=== PATIENT | female | born 1965 | race Hispanic/Latino ===

== ENCOUNTER 2019-05-06 16:52 | Inpatient (IN) | payer OTHER ==
[~2019-05-06] VITALS: Ht 149.9 cm; Wt 88.9 kg
--- OUTSIDE RECORDS SUMMARY | 2019-05-06 16:55 | XMS REPORT ---
Author Author [facility] Address Unknown Phone Unavailable Care Team Providers Care Digital Camera Technician Name Role Phone Liliya SELBY Unavailable Unavailable Payers Payer Name Policy Type Policy Number Effective Date Expiration Date Problems This patient has no known problems. Allergies, Adverse Reactions, Alerts Allergy Name Allergy Type Status Severity Reaction(s) Onset Date Inactive Date Treating Clinician Comments aspirin DA Active SV 2018-03-29 00:00:00 Medications This patient has no known medications. Encounters Start Date/Time End Date/Time Encounter Type Admission Type Attending Clinicians Care Facility Care Department Encounter ID 2018-07-28 03:12:00 2018-07-28 03:12:00 Emergency E [id number] Results Test Description Test Time Test Comments Text Results Atomic Results Result Comments TISSUE EXAM 2019-02-02 17:23:00 Surgical Pathology Report Case: [id number] Authorizing Provider: Gallo Selby MD Collected: 01/26/2019 1800 Ord ering Location: [facility] Radiology Main Received: 01/26/2019 0941 Pathologist: Agustín Robison MD Specimen: Kidney, Left KIDNEY, LEFT, NEEDLE BIOPSIES- FOCAL SEGMENTAL AND DIFFUSE GLOBAL GLOMERULOSCLEROSIS WITH KIMMELSTIEL GARY NODULES, - NEGATIVE FOR IMMUNE MEDIATED GLOMERULONEPHRITIS (PENDING EM EVALUATION)- DIFFUSE INTERSTITIAL FIBROSIS AND TUBULAR ATROPHY (~70%)- MARKED ARTERIAL AND ARTERIOLAR SCLEROSIS- SEE COMMENT Signing Pathologist Direct Phone Line: [phone] signed by Agustín Robison MD on 02/02/2019 at 5:23 PMPreliminary result electronically signed by Agustín Robison MD on 01/28/2019 at 4:57 PMThe renal biopsy shows predominant changes of advanced diabetic glomerulosclerosis, admixed with hypertensive changes. The results were discussed with Dr. Selby on 01/28/2019 at 5 pm. [id number], [id number] x3, 88 346, 33271 x7, [id number], UPC of 11, Diabetes, Hypertension and Chronic kidney diseaseLeft transplant kidney biopsyThe specimen is received in three containers each labeled with the patient's name, accession number and "kidney L". Received in formalin are two traore-soft tissue cores measuring 1.6 cm and 1.2 cm in length which are submitted in toto in A1. Received in saline is a 1.7 cm in length traore soft tissue core which is frozen for immunofluorescence study. Received in glutaraldehyde is a 0.3 cm traore soft tissue core which is sent to the EM lab for further processing. CG/pl LIGHT MICROSCOPY: Sections show two cores of cortical tissue. Glomeruli: Approximately 28 glomeruli are examined of which 16 glomeruli are globally sclerotic/obsolescent or show near complete obsolescence. Most globally sclerotic glomeruli are enlarged with hyalinosis. Occcasional globally sclerosed glomerulus is small with wrinkled and collapsed glomerular tuft. The remaining non-globally sclerotic glomeruli are enlarged and have mesangial expansion by PAS- and silver-positive matrix with normal to mild segmental hypercellularity. Focal and segmental sclerosis is present. Multiple glomeruli shows Kimmelsteil Gary nodules. No endocapillary hypercellularity, crescents or thrombi are seen.Tubules and interstitium: There is severe interstitial fibrosis with focal tubular atrophy and mild chronic interstitial inflammatory cell infiltration by lymphocytes involving about 70% of renal cortex. The foci of scarring show mild chronic lymphoplasmacytic inflammation admixed with eosinophils. Non-atrophic proximal tubules are focally ectatic with loss of brush borders. Vessels: Interlobular arteries show moderate intimal sclerosis and thickening. There is diffuse hyaline arteriolosclerosis. Special stains: Vicky trichrome, PAS and Keenan silver stains were necessary for evaluation of this biopsy and showed expected staining patterns of internal control tissue matrix structures.Direct Immunofluorescence:Histology: H&E- stained sections show 3 non-obsolescent glomeruli and 8 obsolescent glomeruli. Immunofluorescence findings: IgA: negative in glomeruli; positive staining in tubular castsIgG: no significant glomerular, tubulointerstitial or vascular staining IgM: focal, segmental mesangial staining, amorphous/entrapment, 2+C3: focal mesangial staining 1+ to 2+, focal arteriolar beocdaniT9g: no significant glomerular, tubulointerstitial or vascular staining Fibrinogen: no significant glomerular, tubulointerstitial or vascular staining [place]: negative glomeruli; positive staining in tubular castsLambda: negative glomeruli; positive staining in tubular castsAll polyclonal antibodies used for immunofluorescence staining have been previously tested and shown to have appropriate reactivities with positive control specimens. ELECTRON MICROSCOPYPerformed on paraffin embedded tissue: Ultrastructure: Examination of the glomerular ultrastructure reveals that the glomerular basement membrane is segmentally thick, focally measuring approximately 750 nm (normal adult female kmrbaiv=259 - 395 nm; Joe Saleh,Arch Pathol Lab Med [phone]). There is nodular mesangial expansion. Mesangial expansion with fibrils consistent with diabetic fibrillosis are present. No subendothelial, subepithelial, and mesangial/paramesangial electron-dense, immune complex-type deposits are not present. Podocyte foot processes are diff usely effaced.The interpretation of this case included the use of immunohistochemistry or special stains.Control Slides Examined: In-house known positive controls were evaluated along with the test tissue. These control slides run alongside of the patients sample show appropriate staining. Internal positive and negative controls when available are evaluated Immunohistochemistry technical testing was performed at [facility], Pathology Laboratory where it was developed and its performance characteristics were determined. It has not been cleared or approved by the U.S. Food and Drug Administration. The FDA has determined that such clearance or approval is not necessary. The test is used for clinical purposes. It should not be regarded as investigational or for research. This laboratory is certified under the Clinical Laboratory Improvement Amendments of 1988 (CLIA-88) as qualified to perform high complexity clinical laboratory testing. U/S, BIOPSY, RENAL (KIDNEY) 2019-01-26 17:37:00 Reason for Exam:->R80.9 N18.4 FINAL REPORT HISTORY: Proteinuria Sedation: Moderate sedation was administered. 1 mg of Versed and 50 mcg of fentanyl IV was used for moderate sedation monitored under my direction. Total intra-service time of sedation was 20 minutes. The patient's vital signs were monitored throughout the procedure and recorded in the patient's medical record by the nurse. DISCUSSION: The procedure including the risks and complications were explained to the patient and the patient consented. The [place] left kidney was localized under ultrasound. The left back was prepped and draped in the usual sterile fashion and 1% lidocaine was applied to the skin and deep soft tissues. Under ultrasound guidance, a total of three biopsy samples were obtained utilizing an 18 gauge needle. Pathology was present during the procedure and specimens were analyzed for adequacy. Specimens were placed in formalin and were sent to pathology for analysis. Postprocedure sonogram did not demonstrate any compli cations. IMPRESSION: Successful ultrasound guided core random biopsy of the [place] left kidney. Signed: Matthew Mac Verified Date/Time: 01/26/2019 17:37:54 Reading Location: [address] Body Reading Room W/PLT COUNT & AUTO DIFFERENTIAL 2019-01-26 07:43:00 WHITE BLOOD CELL COUNT (BEAKER) (test gaxs=429) 10.5 K/ L 3.5-10.5 RED BLOOD CELL COUNT (BEAKER) (test ocuj=834) 2.88 M/ L 3.93-5.22 HEMOGLOBIN (BEAKER) (test wexn=184) 7.7 GM/DL 11.2-15.7 HEMATOCRIT (BEAKER) (test igbl=007) 25.7 % 34.1-44.9 MEAN CORPUSCULAR VOLUME (BEAKER) (test cjwg=195) 89.2 fL 79.4-94.8 MEAN CORPUSCULAR HEMOGLOBIN (BEAKER) (test scxk=080) 26.7 pg 25.6-32.2 MEAN CORPUSCULAR HEMOGLOBIN CONC (BEAKER) (test fzmf=514) 30.0 GM/DL 32.2-35.5 RED CELL DISTRIBUTION WIDTH (BEAKER) (test dxia=595) 14.0 % 11.7-14.4 PLATELET COUNT (BEAKER) (test obot=639) 305 K/CU MM 150-450 MEAN PLATELET VOLUME (BEAKER) (test bfpz=331) 10.0 fL 9.4-12.3 NUCLEATED RED BLOOD CELLS (BEAKER) (test ssxr=235) 0 /100 WBC 0-0 NEUTROPHILS RELATIVE PERCENT (BEAKER) (test enyp=297) 58 % LYMPHOCYTES RELATIVE PERCENT (BEAKER) (test yxjo=699) 24 % MONOCYTES RELATIVE PERCENT (BEAKER) (test dlei=539) 7 % EOSINOPHILS RELATIVE PERCENT (BEAKER) (test nfsz=109) 10 % BASOPHILS RELATIVE PERCENT (BEAKER) (test zuat=927) 1 % NEUTROPHILS ABSOLUTE COUNT (BEAKER) (test hzbj=396) 6.07 K/ L 1.56-6.13 LYMPHOCYTES ABSOLUTE COUNT (BEAKER) (test ahxu=014) 2.49 K/ L 1.18-3.74 MONOCYTES ABSOLUTE COUNT (BEAKER) (test pmtg=288) 0.78 K/ L 0.24-0.36 EOSINOPHILS ABSOLUTE COUNT (BEAKER) (test lqxu=899) 1.07 K/ L 0.04-0.36 BASOPHILS ABSOLUTE COUNT (BEAKER) (test qobp=438) 0.08 K/ L 0.01-0.08 IMMATURE GRANULOCYTES-RELATIVE PERCENT (BEAKER) (test khxz=5231) 1 % 0-1 SCREEN, [id number] 07:40:00* Test Item Value Reference Range Comments TEST URINE (BEAKER) (test syyv=125) Negative [id number] 07:39:00* Test Item Value Reference Range Comments PARTIAL THROMBOPLASTIN TIME (BEAKER) (test gyeo=199) 34.5 seconds 22.5-36.0 PROTHROMBIN TIME/[id number] 07:38:00* Test Item Value Reference Range Comments PROTIME (BEAKER) (test fgyo=526) 13.8 seconds 11.9-14.2 INR (BEAKER) (test guka=491) 1.1 <=5.9 Effective 09/10/2018: PT Reference Range ChangeNew: 11.9-14.2 Previous: 11.7-14. 7RECOMMENDED COUMADIN/WARFARIN INR THERAPY RANGESSTANDARD DOSE: 2.0-3.0 Include s: PROPHYLAXIS for venous thrombosis, systemic embolization; TREATMENT for venou s thrombosis and/or pulmonary embolus.HIGH RISK: Target INR is 2.5-3.5 for patie nts wiht mechanical heart valves.
[2019-05-06] MEDS ORDERED: HYDRALAZINE HCL 20 MG/ML VIAL IV STA (17:07)
[2019-05-06] MEDS ORDERED: ACETAMINOPHEN 325 MG TAB PO ONE (17:15)
[2019-05-06] MEDS ORDERED: HYDRALAZINE HCL 20 MG/ML VIAL ONE (17:19)
[2019-05-06] MEDS ORDERED: ACETAMINOPHEN 325 MG TAB ONE (17:19)
[2019-05-06] MEDS ORDERED: ONDANSETRON HCL INJ 2MG/ML 2ML 2 MG/ML VIAL IV STA (17:19)
[2019-05-06] MEDS ORDERED: SODIUM CHLORIDE 0.9% 500ML 500 ML IV STA (17:24)
[2019-05-06] MEDS ORDERED: SODIUM CHLORIDE 0.9% 500ML 500 ML ONE (17:50)
--- NOTE | 2019-05-06 18:11 | Diagnostic Imaging Report ---
CT Abdomen and Pelvis without contrast INDICATION: Nodule, vomiting, diarrhea, ^pain TECHNIQUE: Thin collimation axial images obtained from the diaphragm to the level of the pubic symphysis without nonionic intravenous contrast. Dose reduction techniques used: Automated exposure control, adjustment of the mAs and/or kVp according to patient size, standardized low-dose protocol, and/or iterative reconstruction technique. RADIATION DOSE: Total DLP: 706.17 mGy*cm Estimated effective dose: (DLP x 0.015 x size factor) mSv CTDIvol has been reviewed. It is below the limits set by the Radiation Protocol Committee (RPC). COMPARISON: None. ABDOMEN FINDINGS: Lung Bases: Trace subsegmental atelectasis of the right middle lobe and lingula. The distal esophagus is patulous. No hiatal hernia. Liver: Normal in attenuation without mass. Gallbladder: Absent. No ductal dilatation. Pancreas: Normal attenuation without mass. Spleen: Normal size without mass. Adrenal Glands: No evidence for mass. Kidneys: Right: No renal calculus. No cortical mass or hydronephrosis Left: No renal calculus. No cortical mass or hydronephrosis Lymph Nodes: Left periaortic lymph nodes are prominent, measuring up to 1.4 x 2.0 cm. Aorta: Normal in diameter. Scattered calcifications throughout the arterial structures PELVIS FINDINGS: Bowel: Stomach: Normal. Small Bowel: Normal in caliber with normal wall thickness. Large Bowel: Nonspecific mural thickening of the transverse colon without pericolonic inflammation. No large bowel dilatation. No diverticulosis appreciated. Appendix: Normal. Bladder: Normal. Ureters: No ureteral dilatation. The uterus is present and is atrophic. No adnexal mass. Peritoneum/retroperitoneum: No free fluid or fluid collection. Bones: No focal osseous lesions. There are degenerative changes of the lower lumbar spine. Trace anterolisthesis of L4 on L5 without pars defect. Soft tissues: Fat-containing umbilical hernia has an aperture of 15 mm. Infraumbilical midline scar. IMPRESSION: 1. No evidence for bowel obstruction. Nonspecific mural thickening of the transverse colon. This may represent early colitis. Please correlate with clinical exam findings. Normal appendix. 2. Nonspecific left retroperitoneal lymph node enlargement. Recommend follow-up CT in 3 months to document interval change. No splenomegaly. 3. Cholecystectomy. Normal biliary tree. Signed by: Dr. Bessy Sosa MD on 05/06/2019 6:08 PM
[2019-05-06] MEDS ORDERED: CEFTRIAXONE SOD 1 GM/NS 50 ML 50 ML IV ONE ×2 (18:30→18:32)
[2019-05-06] MEDS ORDERED: CEFTRIAXONE SOD 1 GM VIAL IV ONE (18:30)
--- NOTE | 2019-05-06 18:30 | NUR ---
CALLED [facility] FOR TRANSFER, [facility] STATED TO CALL BACK IN 30 MINUTES FOR BED APPORVAL,
--- NOTE | 2019-05-06 18:42 | NUR ---
REPORT TO EDUARDO AMBRIZ ALL QUESTIONS ANSWERED
--- NOTE | 2019-05-06 19:23 | NUR ---
[facility] NOTIFIED OF TRANSFER SPOKE WITH ETA 30\45 MINUTES
[2019-05-06] MEDS ORDERED: ONDANSETRON HCL INJ 2MG/ML 2ML 2 MG/ML VIAL IV PRN (19:30)
[2019-05-06] MEDS ORDERED: CEFTRIAXONE SOD 1 GM VIAL IV SCH (19:30)
[2019-05-06 20:40] VITALS: BP 140/65
[2019-05-06] MEDS ORDERED: KETOROLAC TROMETHAMINE 30 MG/ML VIAL IV STA (21:33)
[2019-05-06] MEDS: FAMOTIDINE 20 MG/2 ML VIAL IV SCH (22:23)
[2019-05-06] MEDS: SODIUM CHLORIDE 0.9% 1000ML 1,000 ML IV SCH (22:23)
[2019-05-06] MEDS: TRAMADOL HCL 50 MG TAB PO PRN (22:23)
--- NOTE | 2019-05-06 22:52 | NUR ---
Dr. Sang Yoder office Called for consult, left message with Candida
[2019-05-06 23:03] VITALS: BP 140/65
[2019-05-07] VITALS (8 sets, daily range): BP systolic 105–140; BP diastolic 56–63
--- NOTE | 2019-05-07 | NUR ---
[facility] patient is alert and oriented x3. patient is currently on room air and stable, safety and fall precautions maintained as per hospital protocol, bed in lowest position and locked, needed items beside bed and patient instructed to use it to call nurses for help patient verbalized understanding. patient is currently stable will continue to monitor. PATIENT SEEN BY DR RADHA Yoder AND DR. RODRIGUEZ, ORDERS RECEIVED, URINE AND STOOL SENT TO LAB AND RESULTS PENDING.
[2019-05-07] MEDS ORDERED: DEXTROSE 50% SYRINGE 50 ML IV PRN (01:15)
[2019-05-07] MEDS ORDERED: METOCLOPRAMIDE HCL 10 MG/2ML VIAL IV ONE (02:15)
[2019-05-07] MEDS ORDERED: DIPHENOXYLATE/ATROPINE TAB PO ONE (02:45)
[2019-05-07] MEDS: HEPARIN SOD (PORCINE) 5,000 UNIT/ML VIAL SC SCH ×2 (03:12→09:00)
[2019-05-07 05:46] LABS: BASOPHILS % 0.3 % (0.0-1.0); EOSINOPHILS % 0.4 % (0.0-6.0); LYMPHOCYTES # (AUTO) 1.4 (1.0-3.2); LYMPHOCYTES % 18.3 % (18.0-39.1); MEAN CORPUSCULAR HEMOGLOBIN 27.6 pg (28-32); MEAN CORPUSCULAR HGB CONC 29.4 g/dL (31-35); MEAN CORPUSCULAR VOLUME 93.8 fL (81-99); MONOCYTES # (AUTO) 0.6 (0.2-0.8); MONOCYTES % 7.6 % (4.4-11.3); NEUTROPHILS # (AUTO) 5.8 (2.1-6.9); NEUTROPHILS % 72.9 % (38.7-80.0); PLATELET COUNT 196 x10e3/uL (140-360); RED CELL DISTRIBUTION WIDTH 14.4 % (11.7-14.4)
[2019-05-07 05:51] LABS: HEMATOCRIT 19.7 % (34.2-44.1); HEMOGLOBIN 5.8 g/dL (12.0-16.0)
[2019-05-07] MEDS ORDERED: FUROSEMIDE20 MG PO (05:53)
[2019-05-07] MEDS ORDERED: SODIUM BICARBO650 MG PO (05:56)
[2019-05-07] MEDS ORDERED: LIPITOR20 MG PO (05:56)
[2019-05-07] MEDS ORDERED: GABAPENTIN400 MG PO (05:56)
[2019-05-07] MEDS ORDERED: ERGOCALCIF8000 UNIT/ PO (05:56)
[2019-05-07 06:12] LABS: ALBUMIN 2.1 g/dL (3.5-5.0); ALBUMIN/GLOBULIN RATIO 0.7 (0.8-2.0); ANION GAP 12.9 mmol/L (8-16); CALCIUM 7.6 mg/dL (8.4-10.2); CREATININE, SERUM 3.26 mg/dL (0.57-1.11); POTASSIUM 3.9 mmol/L (3.5-5.1)
--- NOTE | 2019-05-07 06:23 | NUR ---
patient hgb 5.8, Dr. Nolan made aware and ordered 2 units of prbc to be given.
[2019-05-07] MEDS: METRONIDAZOLE 500MG/NS 100ML 100 ML IV SCH ×3 (06:24→22:02)
[2019-05-07] MEDS ORDERED: SODIUM CHLORIDE 0.9% 250ML 250 ML IV ONE (06:55)
--- NOTE | 2019-05-07 07:00 | NUR ---
BEDSIDE SHIFT REPORT RECEIVED FROM NIGHT RN. PT DENIES NEEDS AT THIE TIME.
[2019-05-07 07:02] LABS: FERRITIN 852.26 ng/mL (4.63-204.00)
[2019-05-07] MEDS: INSULIN LISPRO 100 UNIT/1 ML 3ML VIAL SQ SCH ×4 (07:30→21:00)
--- NOTE | 2019-05-07 07:34 | History and Physical ---
PRIMARY CARE DOCTOR: Dr. Tisha Oliva. HOSPITAL DOCTOR: Dr. Jermain Ocasio. CHIEF COMPLAINT: Abdominal pain. HISTORY OF PRESENT ILLNESS: Ms. Fair is a 53-year-old female with abdominal pain. The patient complaining of abdominal pain. Onset for roughly three days. Pattern worsening. The patient developed nausea and vomiting over multiple episodes and do not keep things down. The patient as well had some diarrhea reported over the last day. She comes to the emergency room. Temperature noted at 100.1. Blood pressure at 202/101. The patient with headache, malaise and feeling of illness. She had labs done. Labs include 3.0 creatinine. White count elevated. She was referred for hospitalization admission. Of note, the patient had pelvic CT that demonstrates no evidence of bowel obstruction with nonspecific mural thickening of the transverse colon, which could represent early colitis. There is a nonspecific left retroperitoneal lymph node enlargement. There is a cholecystectomy state with normal biliary tree. The lymph node measured was 1.4 x 2.0 cm. PAST MEDICAL HISTORY: CKD, hypertension, diabetes, obesity. MEDICATIONS: Medication list reviewed per the chart record. ALLERGIES: ASPIRIN CITED. SOCIAL HISTORY: No smoking. No drinking. No drugs. The patient is [place] [facility] [place] FAMILY HISTORY: Noncontributory to this condition. REVIEW OF SYSTEMS: GENERAL: There are no weight changes. OPHTHALMOLOGIC: No floaters. ENT: No mouth ulcers. ENDOCRINE: No known adrenal disease. CARDIAC: No heart attack. PULMONARY: No asthma. GI: No constipation. : No blood in urine. MUSCULOSKELETAL: Mild arthritis. NEUROLOGIC: No seizures. DERMATOLOGIC: No rash. PSYCHIATRIC: No depression. LABORATORY DATA: Reviewed per the chart record. IMPRESSION AND PLAN: 1. Syndrome of gastroenteritis, nonspecific. 2. Abnormal chest radiography, possible transverse colitis. 3. Chronic kidney disease plus acute kidney injury. 4. Failure to tolerate p.o. intake. 5. Diabetes. 6. Hypertension. 7. Obesity. Updated labs. Aggressive IV antibiotics. Continue other supportive care and antiemetics. Gastroenterology evaluation. The patient guarded condition. Ensure appropriate urinary output and maintenance of kidney function. Thank you very much, Dr. Oliva, for allowing Dr. Ocasio and I a chance participate in care of Ms. Fair. Please call for questions. MD CAYETANO Silvestre/PINO /[id number]
--- NOTE | 2019-05-07 07:36 | NUR ---
Patient hgb low, due for transfusion, son Octavio called and made aware and agrees to plan of care, patient also made aware through scutcher tender services and also agreed to the transfusion, CONTROL [place]ARD OPER[place] [id number], (AZAEL Becker)patient endorsed to next shift for continuity of care.
--- NOTE | 2019-05-07 08:36 | Diagnostic Imaging Report ---
Chest, 1 view, 05/07/2019. History: CHF. Comparison: None available. Findings: The cardiomediastinal silhouette and pulmonary vasculature are mildly prominent. There is no focal consolidation or pleural effusion. There are no acute osseous or soft tissue abnormalities. Impression: Mild cardiomegaly and pulmonary vascular congestion. Signed by: Robert Tavares on 05/07/2019 8:35 AM
[2019-05-07] MEDS: METOCLOPRAMIDE HCL 10 MG/2ML VIAL IV SCH ×4 (09:39→22:03)
[2019-05-07] MEDS: SODIUM CHLORIDE 0.9% 1000ML 1,000 ML IV SCH ×2 (09:39→22:04)
[2019-05-07] MEDS: FAMOTIDINE 20 MG/2 ML VIAL IV SCH ×2 (09:39→22:03)
[2019-05-07] MEDS: IRON SUCROSE 100 MG in SODIUM CHLORIDE 0.9% 100 ML 100 ML IV SCH (10:07)
[2019-05-07] MEDS ORDERED: SODIUM CHLORIDE 0.9% 250ML 250 ML ONE (11:44)
[2019-05-07] MEDS ORDERED: IRON SUCROSE 100 MG in SODIUM CHLORIDE 0.9% 100 ML 100 ML IV SCH (16:15)
[2019-05-07] MEDS ORDERED: CEFTRIAXONE SOD 1 GM/NS 50 ML 50 ML IV SCH (18:00)
--- NOTE | 2019-05-07 19:00 | NUR ---
Blood transfusion on going, : Unit # [id number]. exp date 06/10/2019. verified and confirmed with out going nurse.
--- NOTE | 2019-05-07 19:15 | NUR ---
Received patient from day nurse, patient is alert, introduced self to patient, patient encouraged to call for help at all times, yellow socks on patient and bed alarm activated, patient is currently stable will continue to monitor.
--- NOTE | 2019-05-07 19:42 | Progress Note ---
DATE: 05/07/2019 AGE: 53-year-old female. HUSBANDRY PERSON: Dr. Domínguez with GI. CHIEF COMPLAINT: Abdominal pain, generalized with nausea, vomiting, and diarrhea. SUBJECTIVE: The patient was seen in the room sitting up. She reports abdominal pain is improved, but diarrhea still present. She is tolerating clear liquid diet. She denies any chest pain, shortness of breath, blood in stool. OBJECTIVE: VITAL SIGNS: Temperature 99.3, pulse is 72, respirations 18, blood pressure 105/58, pulse ox is 96% on room air. GENERAL: No acute distress. HEENT: Normocephalic, atraumatic. NECK: Supple. CARDIOVASCULAR: Regular rate and rhythm. LUNGS: Clear to auscultation. ABDOMEN: Soft, mild tenderness, generalized. NEURO: Alert, awake, oriented x3. MUSCULOSKELETAL: Moves all extremities. SKIN: Dry and intact. LABORATORY DATA: Iron 23, TIBC 216, saturation 11, transferrin 154, ferritin 852. Vitamin B12 is 343. Folate is pending. C-reactive is pending. IgA immunoglobulin is pending. Stool occult was negative. IMAGING: Chest x-ray, mild cardiomegaly and pulmonary vascular congestion. IMPRESSION: 1. Diffused abdominal pain, unspecified. CT abdomen shows possible transverse colitis. We will continue on antibiotics. GI has been consulted for further workup. 2. Chronic kidney disease. Creatinine is 3.26. We will continue with IV fluids and repeat. 3. Hypertension. Resume home medication. 4. Diabetes. Continue sliding scale insulin coverage. 5. Obesity. 6. Acute anemia. Hemoglobin 5.8. We will transfuse 2 units of PRBCs and repeat labs. 7. Deep venous thrombosis prophylaxis. We will hold anticoagulation due to acute anemia. PLAN: To continue with transfusion of 2 units of PRBCs and we will repeat labs. Further recommendations per GI. Dictated by LEISA Ramirez Franklyn Ocasio MD MY/MODL /[id number] Seen and examined on 05/07/2019. Agree with the findings and plan as documented by LEISA Gillis. MTDD
--- NOTE | 2019-05-07 21:00 | NUR ---
completed blood transfusion : Unit # [id number]. exp date 06/10/2019. vitals: 97.8, 70, 140/72, no reaction noted.
[2019-05-07] MEDS: CEFTRIAXONE SOD 1 GM/NS 50 ML 50 ML IV SCH (22:02)
[2019-05-08] VITALS (8 sets, daily range): BP systolic 133–194; BP diastolic 64–88
[2019-05-08 00:35] LABS: BASOPHILS % 0.5 % (0.0-1.0); EOSINOPHILS # (AUTO) 0.4 (0.0-0.4); EOSINOPHILS % 5.4 % (0.0-6.0); HEMATOCRIT 25.6 % (34.2-44.1); HEMOGLOBIN 8.1 g/dL (12.0-16.0); LYMPHOCYTES # (AUTO) 2.1 (1.0-3.2); LYMPHOCYTES % 26.1 % (18.0-39.1); MEAN CORPUSCULAR HEMOGLOBIN 28.7 pg (28-32); MEAN CORPUSCULAR HGB CONC 31.6 g/dL (31-35); MONOCYTES # (AUTO) 0.9 (0.2-0.8); MONOCYTES % 11.3 % (4.4-11.3); NEUTROPHILS # (AUTO) 4.6 (2.1-6.9); NEUTROPHILS % 56.1 % (38.7-80.0); PLATELET COUNT 181 x10e3/uL (140-360); RED BLOOD COUNT 2.82 x10e6/uL (3.6-5.1); RED CELL DISTRIBUTION WIDTH 14.2 % (11.7-14.4)
[2019-05-08 00:54] LABS: MEAN CORPUSCULAR VOLUME 90.8 fL (81-99)
[2019-05-08 01:03] LABS: ANION GAP 14.6 mmol/L (8-16); CALCIUM 7.6 mg/dL (8.4-10.2); CREATININE, SERUM 3.44 mg/dL (0.57-1.11); POTASSIUM 3.6 mmol/L (3.5-5.1)
[2019-05-08] MEDS: METRONIDAZOLE 500MG/NS 100ML 100 ML IV SCH ×3 (06:38→22:00)
--- NOTE | 2019-05-08 06:42 | NUR ---
Bedside shift report received from off going nurse. Patient is resting in bed. No acute distress noted. Call light within reach. Bed in the lowest position.
[2019-05-08] MEDS: INSULIN LISPRO 100 UNIT/1 ML 3ML VIAL SQ SCH ×4 (07:30→21:00)
[2019-05-08] MEDS: METOCLOPRAMIDE HCL 10 MG/2ML VIAL IV SCH ×4 (09:35→21:17)
[2019-05-08] MEDS: FAMOTIDINE 20 MG/2 ML VIAL IV SCH ×2 (09:35→21:17)
[2019-05-08] MEDS: CLONIDINE HCL 0.2 MG TAB PO PRN (09:35)
[2019-05-08] MEDS: IRON SUCROSE 100 MG in SODIUM CHLORIDE 0.9% 100 ML 100 ML IV SCH (09:36)
[2019-05-08] MEDS: METOPROLOL TARTRATE 25 MG TAB PO SCH ×2 (10:30→17:28)
[2019-05-08] MEDS: HYDRALAZINE HCL 20 MG/ML VIAL IV PRN (12:08)
--- NOTE | 2019-05-08 12:40 | Progress Note ---
DATE: 05/08/2019 BRAILLE TEACHER: Dr. Domínguez with GI. CHIEF COMPLAINT: Diffuse abdominal pain with nausea, vomiting, and diarrhea. SUBJECTIVE: The patient is seen in the room with no acute distress. Reports diarrhea and nausea, vomiting is improved. She is n.p.o. for GI workup today. OBJECTIVE: VITAL SIGNS: Temperature 97.0, pulse is 82, respirations 20, blood pressure 194/88, and pulse ox 97% on room air. GENERAL: No acute distress. Obese. HEENT: Normocephalic and atraumatic. NECK: Supple. CARDIOVASCULAR: Regular rate and rhythm. LUNGS: Clear to auscultation. ABDOMEN: Soft and nontender. Obese. NEUROLOGIC: Alert, awake, and oriented x3. MUSCULOSKELETAL: Moves all extremities. SKIN: Dry and intact. LABORATORY DATA: WBC 8.17, hemoglobin 8.1, and hematocrit 25.6. Sodium 141, potassium 3.6, BUN is 45, creatinine is 3.44, and estimated GFR is 14. Stool occult is negative. IMAGING: Chest x-ray shows mild cardiomegaly and pulmonary vascular congestion. Renal ultrasound pending. IMPRESSION: 1. Diffuse abdominal pain, unspecified. CT abdomen shows possible transverse colitis. Continue antibiotics. GI has been consulted for further workup. 2. Acute kidney injury versus chronic kidney disease. Creatinine is 3.4. We will continue with IV fluids and repeat labs. Renal ultrasound is pending. We will consult Nephrology for further workup. 3. Hypertension. Resume home medication. We will add hydralazine IV since she is n.p.o. 4. Diabetes. Continue sliding scale insulin coverage. 5. Obesity. 6. Acute anemia. Likely due to GI loss. Hemoglobin is 8.1, status post 2 units of PRBCs. 7. Deep vein thrombosis prophylaxis. No anticoagulation due to anemia. PLAN: GI workup pending today. We will consult Nephrology and await on renal ultrasound. Dictated by LEISA Ramirez Franklyn Ocasio MD MY/MODL /[id number]
--- NOTE | 2019-05-08 14:33 | NUR ---
PATIENT OFF UNIT FOR PROCEDURE AT THIS TIME.
[2019-05-08] MEDS ORDERED: PROPOFOL IV EMULSION 10 MG/ML 50 ML VIAL ONE (15:17)
[2019-05-08] MEDS ORDERED: MIDAZOLAM HCL 2 MG/2 ML VIAL ONE (15:22)
--- NOTE | 2019-05-08 15:36 | Diagnostic Imaging Report ---
Renal ultrasound, 05/08/2019. History: Acute kidney injury. Discussion: Transverse and longitudinal images of the kidneys were obtained demonstrating normal renal sizes and echogenicities. There is no evidence of hydronephrosis, mass, or renal calculus. The right kidney measures 11.1 cm and the left kidney measures 9.4 cm in length. Renal cortex measures 1.7 and 1.8 cm respectively. The urinary bladder is unremarkable. Bladder volume measures 41 mL. There is no evidence of free fluid. IMPRESSION: Normal renal ultrasound. Signed by: Robert Tavares on 05/08/2019 3:34 PM
--- NOTE | 2019-05-08 16:26 | NUR ---
PATIENT BACK FROM PROCEDURE AT THIS TIME.
[2019-05-08] MEDS: SODIUM BICARBONATE 8.4% SYRING 150 ML in DEXTROSE 5% 1,000 ML IV SCH (16:45)
--- NOTE | 2019-05-08 19:02 | Operative Report ---
DATE OF PROCEDURE: 05/08/2019 SURGEON: Pancho Domínguez MD PROCEDURE: EGD with biopsies. INDICATIONS FOR EGD: Iron deficiency anemia, nausea, and vomiting. MEDICATIONS: The patient was done under MAC, please see anesthesiologist's note. PROCEDURE IN DETAIL: With the patient in the left lateral decubitus position, a flexible fiberoptic Olympus gastroscope was introduced into the esophagus under direct visualization without any difficulty. The esophagus appeared to be within normal limits. The scope was then advanced with ease into the stomach. Mucosa overlying the antrum and the body revealed some diffuse erythema and lznc-vy-guoisjdx edema, and biopsies were obtained and sent to stain for H. pylori. Pylorus was of normal contour and shape, was intubated with ease and the scope was advanced all the way to the second portion of the duodenum. Biopsies were obtained from the second portion and duodenal bulb to rule out sprue. The scope was then withdrawn back into the stomach and retroflexed, mucosa overlying the fundus and the cardia appeared to be within normal limits. The scope was then straightened out, it was subsequently withdrawn, and the patient tolerated the procedure well. IMPRESSION: 1. Normal esophagus. 2. Gastritis, biopsied, biopsies sent to stain for Helicobacter pylori. 3. Rule out sprue. PLAN: Follow up histology. Continue current therapy. Pancho Domínguez MD [facility] [place]/JEANAL /[id number] cc: Franklyn Ocasio MD
--- NOTE | 2019-05-08 19:17 | Consultation ---
DATE OF CONSULTATION: 05/08/2019 HISTORY OF PRESENT ILLNESS: A 53-year-old female known to our Nephrology service with underlying history of diabetes, diabetic kidney disease, chronic kidney disease stage 4 with evidence of proteinuria, presented with anemia, nausea, vomiting, and diarrhea. Received 2 units of packed RBC yesterday. Scheduled for EGD. Since this morning, there has been no nausea, vomiting reported. She had diarrhea last night, but none this morning. Her hemoglobin improved to 8.1. Chemistry shows evidence of mildly elevated anion gap acidosis. Anion gap of 15, bicarb of 12, with a chloride 118, creatinine 3.44. The patient currently lying supine, asymptomatic. Denies shortness of breath, nausea, or vomiting. ALLERGIES: ASPIRIN. PAST MEDICAL HISTORY: History of hypertension, diabetes, diabetic kidney disease. FAMILY HISTORY: Significant for diabetes. PHYSICAL EXAMINATION: GENERAL: Awake, alert, and oriented x3, lying supine, in no apparent distress. VITAL SIGNS: Blood pressure of 144/70, pulse rate 80, and afebrile. HEAD AND NECK: Cornea clear. Oral mucosa moist. Neck veins are flat. LUNGS: Relatively clear. HEART: S1, S2 audible. ABDOMEN: Soft, nontender. No apparent visceromegaly. EXTREMITIES: Lower extremity examination shows no edema. IMPRESSION AND PLAN: Hypertension. Predominantly normal anion gap metabolic acidosis secondary to alkali loss from nausea and vomiting as well as diarrhea. Plan on changing IV fluid from normal saline to IV bicarbonate. We will add Procardia 30 mg XL at bedtime. Discontinue p.o. Lasix. Volume status appears dry. Anemia, must rule out GI bleed, although guaiac negative. Defer to Dr. Pancho Domínguez for endoscopy today and I will standby and follow with you. Repeat labs ordered. Discussed with bedside RN. MD JEANNE Godoy/PINO /[id number]
--- NOTE | 2019-05-08 19:19 | NUR ---
Bedside shift report given to oncoming nurse. Patient is resting in bed. No acute distress noted. Family at bedside. Call light within reach. Bed in the lowest position.
[2019-05-08] MEDS: CEFTRIAXONE SOD 1 GM/NS 50 ML 50 ML IV SCH (21:17)
[2019-05-08] MEDS: NIFEDIPINE CR 30 MG TAB PO SCH (21:18)
[2019-05-08] MEDS: TRAMADOL HCL 50 MG TAB PO PRN (21:22)
[2019-05-09] VITALS (8 sets, daily range): BP systolic 122–177; BP diastolic 62–78
[2019-05-09] MEDS: CLONIDINE HCL 0.2 MG TAB PO PRN
[2019-05-09] MEDS: METRONIDAZOLE 500MG/NS 100ML 100 ML IV SCH ×3 (05:31→22:00)
--- NOTE | 2019-05-09 06:52 | NUR ---
Bedside shift report received from off going nurse. Patient is resting in bed. No acute distress noted. Call light within reach. Bed in the lowest position.
[2019-05-09] MEDS: INSULIN LISPRO 100 UNIT/1 ML 3ML VIAL SQ SCH ×4 (08:30→21:00)
[2019-05-09] MEDS: METOCLOPRAMIDE HCL 10 MG/2ML VIAL IV SCH ×4 (08:30→21:45)
[2019-05-09] MEDS: FAMOTIDINE 20 MG/2 ML VIAL IV SCH ×2 (08:37→21:45)
[2019-05-09] MEDS: METOPROLOL TARTRATE 25 MG TAB PO SCH ×2 (08:37→16:33)
[2019-05-09] MEDS: IRON SUCROSE 100 MG in SODIUM CHLORIDE 0.9% 100 ML 100 ML IV SCH (08:52)
[2019-05-09] MEDS ORDERED: FUROSEMIDE 20 MG TAB PO SCH (09:00)
[2019-05-09] MEDS ORDERED: ATORVASTATIN 20 MG TAB PO SCH (09:00)
[2019-05-09 11:56] LABS: BASOPHILS # (AUTO) 0.1 (0.0-0.1); BASOPHILS % 0.5 % (0.0-1.0); EOSINOPHILS # (AUTO) 0.3 (0.0-0.4); EOSINOPHILS % 3.2 % (0.0-6.0); HEMATOCRIT 28.2 % (34.2-44.1); LYMPHOCYTES # (AUTO) 1.4 (1.0-3.2); LYMPHOCYTES % 12.6 % (18.0-39.1); MEAN CORPUSCULAR HEMOGLOBIN 28.8 pg (28-32); MEAN CORPUSCULAR HGB CONC 31.9 g/dL (31-35); MEAN CORPUSCULAR VOLUME 90.1 fL (81-99); MONOCYTES # (AUTO) 1.1 (0.2-0.8); MONOCYTES % 10.3 % (4.4-11.3); NEUTROPHILS # (AUTO) 7.8 (2.1-6.9); NEUTROPHILS % 72.6 % (38.7-80.0); PLATELET COUNT 206 x10e3/uL (140-360); RED BLOOD COUNT 3.13 x10e6/uL (3.6-5.1); RED CELL DISTRIBUTION WIDTH 14.2 % (11.7-14.4)
[2019-05-09 12:16] LABS: ANION GAP 12.5 mmol/L (8-16); CALCIUM 7.8 mg/dL (8.4-10.2); CREATININE, SERUM 3.04 mg/dL (0.57-1.11); POTASSIUM 3.5 mmol/L (3.5-5.1)
--- NOTE | 2019-05-09 13:24 | Progress Note ---
DATE: 05/09/2019 Nephrology Followup Note SUBJECTIVE: The patient did not appear to be in any acute distress and denied any nausea or vomiting, chest pain or shortness of breath. I's and O's 1240 in and urine output was not recorded accurately. PHYSICAL EXAMINATION: VITAL SIGNS: Blood pressure 143/65, respirations 18, heart rate 72, temperature 98. HEENT: Head was atraumatic, normocephalic. CHEST: Revealed fair air entry. HEART: S1 and S2. ABDOMEN: Obese, but soft. Bowel sounds are positive. EXTREMITIES: No edema. WORKFORCE MANAGEMENT CONSULTANT: She was awake and alert. Cranial nerves were intact. LABORATORY DATA: There were no labs from today. IMPRESSION: 1. Acute and chronic kidney disease with last serum creatinine on 05/07/2019 at 3.4 with bicarb of 12, on bicarb drip. 2. Anemia. 3. Metabolic acidosis on IV fluid with bicarb. PLAN: Continue present treatment. Check CBC, BMP now and then again in the morning and adjust fluids accordingly. No acute indication for dialysis at the present time, but we will be following the patient closely. Romie Ramsey MD SA/MODL /[id number]
--- NOTE | 2019-05-09 14:45 | NUR ---
PT REFUSED TO PARTICIPATE IN DPA
--- NOTE | 2019-05-09 17:45 | Progress Note ---
DATE: 05/09/2019 AGE: A 53-year-old female. CONSULTANTS: 1. Dr. Domínguez with GI. 2. Dr. Rivera with Nephrology. CHIEF COMPLAINT: Diffuse abdominal pain with nausea, vomiting, and diarrhea. SUBJECTIVE: The patient is seen resting in bed with no acute distress. Diarrhea is improved. No nausea, vomiting, or chest pain. She is status post EGD, which showed gastritis with some biopsies done. Tolerating diet. OBJECTIVE: VITAL SIGNS: Temperature is 97.3, pulse is 71, respirations 16, blood pressure 155/78, pulse ox 98% on room air. GENERAL: No acute distress. HEENT: Normocephalic, atraumatic. NECK: Supple. CARDIOVASCULAR: Regular rate and rhythm. LUNGS: Clear to auscultation. ABDOMEN: Soft and nontender, obese. NEUROLOGIC: Alert, awake, oriented x3. MUSCULOSKELETAL: Moves all extremities. SKIN: Dry and intact. PSYCH: Calm. LABORATORY DATA: WBC 10.7, RBCs 3.13, hemoglobin 9.0, hematocrit is 28.2, and platelets 206. Sodium is 139, potassium is 3.5. BUN is 45, creatinine is 3.04, estimated GFR is 16, calcium is 7.8. Renal ultrasound is normal, insignificant. IMPRESSION: 1. Diffuse abdominal pain, unspecified. CT abdomen and pelvis showed possible transverse colitis. Continue antibiotics. GI has been consulted. EGD showed gastritis. Biopsies taken. Pending histology. 2. Acute kidney injury on history of chronic kidney disease. Creatinine is 3.04 today. Renal ultrasound normal. Nephrology has been consulted. IV fluids changed to bicarb. We will continue to monitor. 3. Urinary tract infection. Urine culture positive for Escherichia coli. We will continue on Rocephin. 4. Hypertension. We will resume on home medication. 5. Diabetes. Continue on sliding scale insulin. 6. Obesity. 7. Acute anemia, likely due to GI loss. Status post 2 units of packed red blood cells, hemoglobin is stable at 9. 8. Deep venous thrombosis prophylaxis. No anticoagulation due to anemia. PLAN: Plan is to continue with IV antibiotics and IV fluids. Further recommendation to follow. Dictated by LEISA Ramirez Franklyn Ocasio MD MY/MODL /[id number]
--- NOTE | 2019-05-09 19:22 | NUR ---
Bedside shift report given to oncoming nurse. Patient is resting in bed. No acute distress noted. Family members at bedside. Call light within reach. Bed in the lowest position.
[2019-05-09] MEDS: CEFTRIAXONE SOD 1 GM/NS 50 ML 50 ML IV SCH (21:55)
[2019-05-09] MEDS: NIFEDIPINE CR 30 MG TAB PO SCH (21:55)
[2019-05-09] MEDS: SODIUM BICARBONATE 8.4% SYRING 150 ML in DEXTROSE 5% 1,000 ML IV SCH (23:23)
[2019-05-10] VITALS (10 sets, daily range): BP systolic 156–194; BP diastolic 74–88
[2019-05-10] MEDS: SODIUM BICARBONATE 8.4% SYRING 150 ML in DEXTROSE 5% 1,000 ML IV SCH ×2 (00:52→18:33)
[2019-05-10] MEDS: TRAMADOL HCL 50 MG TAB PO PRN (04:51)
[2019-05-10 06:28] LABS: BASOPHILS % 0.4 % (0.0-1.0); EOSINOPHILS # (AUTO) 0.4 (0.0-0.4); EOSINOPHILS % 4.5 % (0.0-6.0); HEMATOCRIT 26.8 % (34.2-44.1); HEMOGLOBIN 8.6 g/dL (12.0-16.0); LYMPHOCYTES # (AUTO) 1.8 (1.0-3.2); LYMPHOCYTES % 19.7 % (18.0-39.1); MEAN CORPUSCULAR HEMOGLOBIN 28.6 pg (28-32); MEAN CORPUSCULAR HGB CONC 32.1 g/dL (31-35); MONOCYTES # (AUTO) 1.1 (0.2-0.8); MONOCYTES % 11.6 % (4.4-11.3); NEUTROPHILS # (AUTO) 5.7 (2.1-6.9); NEUTROPHILS % 62.7 % (38.7-80.0); PLATELET COUNT 193 x10e3/uL (140-360); RED BLOOD COUNT 3.01 x10e6/uL (3.6-5.1); RED CELL DISTRIBUTION WIDTH 14.1 % (11.7-14.4)
[2019-05-10] MEDS: METRONIDAZOLE 500MG/NS 100ML 100 ML IV SCH ×3 (06:44→21:00)
--- NOTE | 2019-05-10 06:52 | NUR ---
RECEIVED BEDSIDE SHIFT REPORT FROM OFF GOING NURSE, PATIENT IS IN STABLE CONDITION. DENIES PAIN OR DISCOMFORT, CALL LIGHT WITHIN REACH. BED IN THE LOWEST POSITION.
[2019-05-10 06:54] LABS: ANION GAP 12.2 mmol/L (8-16); CALCIUM 7.5 mg/dL (8.4-10.2); CREATININE, SERUM 2.91 mg/dL (0.57-1.11); POTASSIUM 3.2 mmol/L (3.5-5.1)
[2019-05-10] MEDS: FAMOTIDINE 20 MG/2 ML VIAL IV SCH ×2 (08:18→20:39)
[2019-05-10] MEDS: METOCLOPRAMIDE HCL 10 MG/2ML VIAL IV SCH ×4 (08:18→20:39)
[2019-05-10] MEDS: METOPROLOL TARTRATE 25 MG TAB PO SCH ×2 (08:19→17:15)
[2019-05-10] MEDS: INSULIN LISPRO 100 UNIT/1 ML 3ML VIAL SQ SCH ×4 (08:23→21:00)
[2019-05-10] MEDS: FUROSEMIDE 20 MG TAB PO SCH ×2 (09:39→17:15)
[2019-05-10] MEDS: IRON SUCROSE 100 MG in SODIUM CHLORIDE 0.9% 100 ML 100 ML IV SCH (10:23)
[2019-05-10] MEDS: CLONIDINE HCL 0.2 MG TAB PO PRN (11:50)
[2019-05-10] MEDS ORDERED: POTASSIUM CHLORIDE 10MEQ EA PO NR (12:30)
[2019-05-10] MEDS ORDERED: CHLORASEPTIC SPRAY 177 ML BTL MM PRN (13:00)
--- NOTE | 2019-05-10 16:09 | Progress Note ---
DATE: 05/10/2019 CONSULTANTS: 1. Dr. Domínguez with GI. 2. Dr. Rivera with Nephrology. CHIEF COMPLAINT: Diffuse abdominal pain with nausea, vomiting, and diarrhea. SUBJECTIVE: The patient is sitting up in bed with no acute distress, eating her lunch. She reports having swelling in abdomen and requesting to resume her Lasix. Status post EGD, which showed gastritis. Tolerating p.o. OBJECTIVE: VITAL SIGNS: Temperature 97.0, pulse is 65, respirations 20, blood pressure 169/86, and pulse ox 98% on room air. GENERAL: No acute distress. HEENT: Normocephalic, atraumatic. NECK: Supple. CARDIOVASCULAR: Regular rate and rhythm. LUNGS: Clear to auscultation. ABDOMEN: Soft and nontender, obese. Feels like it is swollen. NEUROLOGIC: Alert, awake, and oriented x3. MUSCULOSKELETAL: Moves all extremities. SKIN: Dry. PSYCH: Calm. LABORATORY DATA: WBC 9.4, hemoglobin 8.6, hematocrit 26.8. Sodium 139, potassium 3.2. BUN is 35, creatinine 2.91. Estimated GFR is 17, calcium is 7.5. IMPRESSION: 1. Diffuse abdominal pain, unspecified. Status post EGD, which showed gastritis. Biopsies taken, pending histology. GI is on the case. CT shows transverse colitis. 2. Acute kidney injury with a history of chronic kidney disease. Creatinine is improving to 2.9. Renal ultrasound is normal. Continue bicarb per Nephrology. 3. Urinary tract infection with Escherichia coli. We will continue with Rocephin. 4. Hypertension. We will resume home medications. 5. Diabetes. Continue sliding scale insulin. 6. Obesity. Lifestyle modifications advised. 7. Acute anemia, likely due to gastrointestinal loss, status post 2 units of PRBCs. Hemoglobin is 8.6. We will continue to monitor. 8. Deep vein thrombosis prophylaxis. No anticoagulation due to anemia. PLAN: Plan is to continue with IV antibiotics and fluids. Further recommendations per Renal and GI. Anticipate discharge home tomorrow if creatinine continues to improve. Dictated by LEISA Ramirez Franklyn Ocasio MD MY/MODL /[id number]
[2019-05-10 18:42] LABS: WBC,FECAL (FECAL LACTOFERRIN) NEGATIVE (NEGATIVE)
--- NOTE | 2019-05-10 19:15 | NUR ---
Received patient from day nurse, patient is alert and oriented, no complains at this time, patient is stable.
[2019-05-10] MEDS: CEFTRIAXONE SOD 1 GM/NS 50 ML 50 ML IV SCH (20:39)
[2019-05-10] MEDS: NIFEDIPINE CR 30 MG TAB PO SCH (20:41)
[2019-05-10] MEDS: HYDRALAZINE HCL 20 MG/ML VIAL IV PRN (20:43)
[2019-05-10] MEDS ORDERED: ATORVASTATIN 20 MG TAB PO SCH (21:00)
[2019-05-11 00:24] VITALS: BP 125/58
[2019-05-11] MEDS: FUROSEMIDE 20 MG TAB PO SCH (05:11)
[2019-05-11] MEDS: METRONIDAZOLE 500MG/NS 100ML 100 ML IV SCH (05:11)
[2019-05-11 05:15] VITALS: BP 159/69
--- NOTE | 2019-05-11 07:00 | NUR ---
patient endorsed to next shift for continuity of care.
[2019-05-11] MEDS: INSULIN LISPRO 100 UNIT/1 ML 3ML VIAL SQ SCH ×2 (07:30→11:30)
--- NOTE | 2019-05-11 07:45 | NUR ---
PT UP ON SIDE OF BED ,DENIES PAIN,NAUSEA.
[2019-05-11 07:47] VITALS: BP 153/72
[2019-05-11] MEDS: METOCLOPRAMIDE HCL 10 MG/2ML VIAL IV SCH ×2 (08:23→11:30)
[2019-05-11] MEDS: FAMOTIDINE 20 MG/2 ML VIAL IV SCH (08:23)
[2019-05-11 08:33] VITALS: BP 153/72
[2019-05-11] MEDS: METOPROLOL TARTRATE 25 MG TAB PO SCH (09:00)
[2019-05-11] MEDS: IRON SUCROSE 100 MG in SODIUM CHLORIDE 0.9% 100 ML 100 ML IV SCH (10:00)
[2019-05-11] MEDS ORDERED: PEPCID20 MG PO (11:40)
[2019-05-11] MEDS ORDERED: LEVAQUIN500 MG PO (11:41)
[2019-05-11 12:02] VITALS: BP 154/72
[2019-05-11 12:23] LABS: C DIFFICILE TOXIN A&B AMP PROB NEGATIVE (NEGATIVE)
[2019-05-11 12:37] LABS: ANION GAP 15.5 mmol/L (8-16); CALCIUM 7.6 mg/dL (8.4-10.2); CREATININE, SERUM 2.65 mg/dL (0.57-1.11); POTASSIUM 3.5 mmol/L (3.5-5.1)
--- NOTE | 2019-05-11 15:08 | NUR ---
PT DISCHARD=GED HOME IV DCD WITHOUT REDNESS OR SWELLING,PRESCRIPTIONS AND INSTRUCTIONS GIVEN COPY ON CHART.,TRANSPORTED TO AUTO VIA W/C
[2019-05-12 06:09] LABS: ENDOMYSIAL ANTIBODIES, IGA Negative (Negative)
--- NOTE | 2019-05-12 11:46 | Discharge Summary ---
PRIMARY CARE PHYSICIAN: Dr. Tisha Oliav at [facility]. FINAL DIAGNOSES: 1. Gastroenteritis. 2. Possible transverse colitis. 3. Acute kidney injury with a history of chronic kidney disease. 4. Diabetes. 5. Urinary tract infection with Escherichia coli. 6. Hypertension. 7. Obesity. CONSULTANTS: 1. Dr. Rivera with Nephrology. 2. Dr. Domínguez with GI. PROCEDURES: EGD was done, which showed gastritis. Biopsies taken. HISTORY: Per HPI. HOSPITAL COURSE: This is a 53-year-old female, who presented with abdominal pain, nausea, vomiting, diarrhea for the past three days. Reported pain was worsening with constant diarrhea. In the ER, CT abdomen showed thickening of the transverse colon, possible for early colitis. She was started on IV antibiotics and GI was consulted. EGD was done, which showed gastritis. Her diarrhea resolved. Abdominal pain, nausea and vomiting resolved. Tolerated diet. Urine culture showed E coli, which she had been on treatment on Rocephin. Today, she is afebrile, vital signs stable, we will discharge home on Pepcid for gastritis and Levaquin renal dose for UTI. She will follow up with Dr. Bustillos regarding her kidney function. PHYSICAL EXAMINATION: VITAL SIGNS: Temperature 99.4, pulse is 86, respirations 16, blood pressure 153/72, pulse ox 95% on room air. GENERAL: No acute distress. HEENT: Normocephalic, atraumatic. CARDIAC: Regular rate and rhythm. LUNGS: Clear to auscultation. GI: Nontender and soft, obese. MUSCULOSKELETAL: Moves all extremities. NEUROLOGIC: Alert, awake, and oriented x3. SKIN: Dry and intact. PSYCH: Calm. CONDITION AT DISCHARGE: Improved and stable. DISCHARGE MEDICATIONS: Please see medication reconciliation list. FOLLOWUP: Follow up with PCP, GI and Nephrology in 1 week. TIME SPENT: Total time of discharge is 32 minutes. Dictated by LEISA Ramirez Franklyn Ocasio MD MY/MODL /[id number] cc: Dr. Tisha Oliva
== END 2019-05-11 15:08 | disposition home or self-care (01) | DRG 372 ==
LOC: FSED 16:52 → ERHOLD 19:28 → MED/SURG3 21:05
PROVIDERS: ADMIT Internal Medicine; ATTEND Internal Medicine
PROC: 30233N1 Transfusion of Nonautologous Red Blood Cells into Peripheral Vein, Percutaneous Approach (ICD-10-PCS; 2019-05-07)
PROC: 0DB78ZX Excision of Stomach, Pylorus, Via Natural or Artificial Opening Endoscopic, Diagnostic (ICD-10-PCS; principal; 2019-05-08 15:24)
DX: A04.9 Bacterial intestinal infection, unspecified (principal); N17.9 Acute kidney failure, unspecified; N18.4 Chronic kidney disease, stage 4 (severe); E87.2 Acidosis; N39.0 Urinary tract infection, site not specified; D62 Acute posthemorrhagic anemia; E66.9 Obesity, unspecified; Z68.39 Body mass index [BMI] 39.0-39.9, adult; E11.22 Type 2 diabetes mellitus with diabetic chronic kidney disease; I12.9 Hypertensive chronic kidney disease with stage 1 through stage 4 chronic kidney disease, or unspecified chronic kidney disease; D50.9 Iron deficiency anemia, unspecified; K29.70 Gastritis, unspecified, without bleeding
CPT/HCPCS: 36415; 43239; 71045; 74176; 76770; 80048; 80053; 80076; 81003; 82270; 82607; 82728; 82746; 82784; 82948; 83516; 83540; 83605; 83630; 83690; 83993; 84466; 85025; 85045; 86140; 86256; 86850; 86900; 86920; 87045; 87086; 87177; 87186; 87400; 87493; 88305; 88312; 93005; 99284; J0360; J0696; J1644; J1756; J2250; J2405; J2765; J7030; J7040; J7050; J7070; P9016

== ENCOUNTER 2020-09-14 08:48 | Inpatient (IN) | payer OTHER ==
[~2020-09-14] VITALS: Ht 149.9 cm; Wt 91.9 kg
[~2020-09-14 08:48] MED LIST: ERGOCALCIF8000 UNIT/ PO; FUROSEMIDE20 MG PO; GABAPENTIN400 MG PO; LEVAQUIN500 MG PO; LIPITOR20 MG PO; PEPCID20 MG PO; SODIUM BICARBO650 MG PO
[2020-09-14] MEDS ORDERED: SODIUM CHLORIDE 0.9% 1000ML 1,000 ML IV STA (08:59)
[2020-09-14] MEDS ORDERED: ONDANSETRON HCL INJ 2MG/ML 2ML 2 MG/ML VIAL IV PRN ×3 (09:00→14:15)
[2020-09-14 09:54] LABS: BASOPHILS # (AUTO) 0.1 (0.0-0.1); BASOPHILS % 0.8 % (0.0-1.0); EOSINOPHILS # (AUTO) 0.2 (0.0-0.4); EOSINOPHILS % 1.6 % (0.0-6.0); HEMATOCRIT 32.7 % (34.2-44.1); HEMOGLOBIN 10.2 g/dL (12.0-16.0); LYMPHOCYTES # (AUTO) 1.3 (1.0-3.2); MEAN CORPUSCULAR HEMOGLOBIN 29.8 pg (28-32); MEAN CORPUSCULAR HGB CONC 31.2 g/dL (31-35); MEAN CORPUSCULAR VOLUME 95.6 fL (81-99); MONOCYTES # (AUTO) 0.8 (0.2-0.8); MONOCYTES % 7.9 % (4.4-11.3); NEUTROPHILS # (AUTO) 7.5 (2.1-6.9); NEUTROPHILS % 76.2 % (38.7-80.0); PLATELET COUNT 330 x10e3/uL (140-360); RED BLOOD COUNT 3.42 x10e6/uL (3.6-5.1); RED CELL DISTRIBUTION WIDTH 12.9 % (11.7-14.4)
[2020-09-14 10:17] LABS: ALBUMIN 3.5 g/dL (3.5-5.0); ALBUMIN/GLOBULIN RATIO 0.9 (0.8-2.0); ANION GAP 17.2 mmol/L (8-16); CALCIUM 7.9 mg/dL (8.4-10.2); CREATININE, SERUM 4.28 mg/dL (0.57-1.11); POTASSIUM 5.2 mmol/L (3.5-5.1)
[2020-09-14 10:29] LABS: BACTERIA,URINE RARE /HPF; EPITHELIAL CELLS,URINE FEW /LPF; RBC,URINE 0-5 /HPF (0-5)
[2020-09-14 10:30] LABS: AMORPHOUS SEDIMENT,URINE FEW (FEW); MUCUS,URINE FEW (RARE)
[2020-09-14 10:33] LABS: CLARITY,URINE CLEAR (CLEAR); COLOR,URINE YELLOW (YELLOW); KETONES,URINE TRACE (NEGATIVE); LEUKOCYTE ESTERASE ,URINE NEGATIVE (NEGATIVE); NITRITE,URINE NEGATIVE (NEGATIVE); PROTEIN,URINE DIPSTICK >=300 (NEGATIVE); URINE UROBILINOGEN 0.2 mg/dL (0.2 - 1)
[2020-09-14] MEDS ORDERED: SODIUM BICARBONATE 8.4% INJ 50 ML SYR IV STA (10:40)
[2020-09-14] MEDS ORDERED: SODIUM CHLORIDE 0.9% 500ML 500 ML IV STA (10:40)
[2020-09-14] MEDS ORDERED: SOD POLYSTYRENE SULFONATE SUSP 15 GM/60 ML BTL PO ONE (10:45)
[2020-09-14] MEDS ORDERED: AZITHROMYCIN 500MG/NS 250 ML 250 ML IV STA (11:00)
[2020-09-14] MEDS ORDERED: FUROSEMIDE INJ 10 MG/ML 2 ML VIAL IV ONE (11:00)
[2020-09-14] MEDS ORDERED: CEFTRIAXONE 1 GM VIAL IV SCH (11:00)
[2020-09-14] MEDS ORDERED: SODIUM BICARBONATE 8.4% SYRING 0 ML ONE (11:08)
[2020-09-14] MEDS ORDERED: CALCIUM GLUCONATE 10% INJ 4.65 MEQ in SODIUM CHLORIDE 0.9% 50ML 50 ML IV ONE (11:30)
[2020-09-14] MEDS ORDERED: CEFTRIAXONE 1 GM in SODIUM CHLORIDE 0.9% 50ML 50 ML IV SCH (11:30)
[2020-09-14] MEDS: CEFTRIAXONE 1 GM in SODIUM CHLORIDE 0.9% 50ML 50 ML IV SCH (11:47)
[2020-09-14] MEDS: SODIUM BICARBONATE 8.4% SYRING 150 ML in DEXTROSE 5% 1,000 ML IV SCH (12:06)
[2020-09-14] MEDS ORDERED: MORPHINE SULFATE INJ 4 MG/ML INJ 1ML IV STA (12:49)
[2020-09-14] MEDS ORDERED: MORPHINE SULFATE INJ 2 MG/ML SYR ONE (13:03)
[2020-09-14] MEDS ORDERED: CLONIDINE HCL 0.1 MG TAB PO PRN (14:15)
[2020-09-14] MEDS ORDERED: DEXTROSE 50% SYRINGE 50 ML IV PRN (15:15)
[2020-09-14] MEDS: INSULIN REGULAR, HUMAN 100 UNIT/1 ML 3ML VIAL SQ SCH ×2 (16:30→20:02)
[2020-09-14 19:00] VITALS: BP 157/57
[2020-09-14] MEDS: FUROSEMIDE 20 MG TAB PO SCH (19:48)
[2020-09-14] MEDS: SODIUM BICARBONATE 650 MG TAB PO SCH (19:48)
[2020-09-14 20:21] VITALS: BP 157/57
[2020-09-14] MEDS ORDERED: OLMESARTAN-HCT1 EAC1 PO (20:22)
[2020-09-14] MEDS ORDERED: BASAGLAR K100 UNIT/1 SQ ×2 (20:22)
[2020-09-14] MEDS: ACETAMINOPHEN 325 MG TAB PO PRN (21:50)
[2020-09-14] MEDS: HEPARIN SOD (PORCINE) 5,000 UNIT/ML VIAL SC SCH (21:50)
[2020-09-15] VITALS (8 sets, daily range): BP systolic 131–174; BP diastolic 57–77
[2020-09-15] MEDS: CEFTRIAXONE 1 GM in SODIUM CHLORIDE 0.9% 50ML 50 ML IV SCH ×2 (00:15→11:57)
[2020-09-15 04:23] LABS: BASOPHILS # (AUTO) 0.1 (0.0-0.1); BASOPHILS % 0.6 % (0.0-1.0); EOSINOPHILS # (AUTO) 0.1 (0.0-0.4); EOSINOPHILS % 0.9 % (0.0-6.0); HEMATOCRIT 25.2 % (34.2-44.1); LYMPHOCYTES # (AUTO) 1.9 (1.0-3.2); LYMPHOCYTES % 23.6 % (18.0-39.1); MEAN CORPUSCULAR HGB CONC 31.7 g/dL (31-35); MEAN CORPUSCULAR VOLUME 94.4 fL (81-99); NEUTROPHILS # (AUTO) 4.9 (2.1-6.9); NEUTROPHILS % 61.4 % (38.7-80.0); PLATELET COUNT 258 x10e3/uL (140-360); RED BLOOD COUNT 2.67 x10e6/uL (3.6-5.1); RED CELL DISTRIBUTION WIDTH 12.7 % (11.7-14.4)
[2020-09-15 04:41] LABS: ANION GAP 15.1 mmol/L (8-16); CALCIUM 7.6 mg/dL (8.4-10.2); CREATININE, SERUM 4.16 mg/dL (0.57-1.11); POTASSIUM 4.1 mmol/L (3.5-5.1)
[2020-09-15] MEDS: HYDRALAZINE HCL 20 MG/ML VIAL IV PRN (06:33)
[2020-09-15] MEDS: INSULIN REGULAR, HUMAN 100 UNIT/1 ML 3ML VIAL SQ SCH ×4 (08:00→21:00)
[2020-09-15] MEDS: SODIUM BICARBONATE 650 MG TAB PO SCH ×2 (09:00→17:45)
[2020-09-15] MEDS: GABAPENTIN 400 MG CAP PO SCH (09:00)
[2020-09-15] MEDS: ATORVASTATIN 10 MG TAB PO SCH (09:00)
[2020-09-15] MEDS: FAMOTIDINE 20 MG TAB PO SCH (09:00)
[2020-09-15] MEDS: HEPARIN SOD (PORCINE) 5,000 UNIT/ML VIAL SC SCH ×2 (09:00→21:00)
[2020-09-15] MEDS: FUROSEMIDE 20 MG TAB PO SCH ×2 (09:00→17:45)
[2020-09-15] MEDS ORDERED: ALBUTEROL SULF 0.083% NEB SOLN 3 ML NEB NEB PRN (11:15)
[2020-09-15] MEDS: ACETAMINOPHEN 325 MG TAB PO PRN (16:00)
[2020-09-15] MEDS: SODIUM BICARBONATE 8.4% SYRING 150 ML in DEXTROSE 5% 1,000 ML IV SCH (18:13)
[2020-09-16] VITALS (8 sets, daily range): BP systolic 110–176; BP diastolic 55–81
[2020-09-16] MEDS: CEFTRIAXONE 1 GM in SODIUM CHLORIDE 0.9% 50ML 50 ML IV SCH ×2 (00:33→12:58)
[2020-09-16 06:28] LABS: ALBUMIN 2.6 g/dL (3.5-5.0); ALBUMIN/GLOBULIN RATIO 0.8 (0.8-2.0); ANION GAP 16.5 mmol/L (8-16); CREATININE, SERUM 3.94 mg/dL (0.57-1.11); POTASSIUM 3.5 mmol/L (3.5-5.1)
[2020-09-16] MEDS: HYDRALAZINE HCL 20 MG/ML VIAL IV PRN (06:31)
[2020-09-16] MEDS: ACETAMINOPHEN 325 MG TAB PO PRN ×2 (07:45→13:05)
[2020-09-16] MEDS: INSULIN REGULAR, HUMAN 100 UNIT/1 ML 3ML VIAL SQ SCH ×4 (08:30→21:33)
[2020-09-16] MEDS: FUROSEMIDE 20 MG TAB PO SCH ×2 (09:09→17:20)
[2020-09-16] MEDS: SODIUM BICARBONATE 650 MG TAB PO SCH ×2 (09:09→17:20)
[2020-09-16] MEDS: GABAPENTIN 400 MG CAP PO SCH (09:09)
[2020-09-16] MEDS: FAMOTIDINE 20 MG TAB PO SCH (09:09)
[2020-09-16] MEDS: ATORVASTATIN 10 MG TAB PO SCH (09:10)
[2020-09-16] MEDS: HEPARIN SOD (PORCINE) 5,000 UNIT/ML VIAL SC SCH ×2 (09:30→21:32)
[2020-09-16 14:08] LABS: CREATININE,URINE RANDOM 73.5 mg/dL (47-110)
[2020-09-16 14:46] LABS: TOTAL PROTEIN 24HR, URINE 5837.5 mg/24hr (50-100)
[2020-09-16 15:05] LABS: % IRON SATURATION 31 % (15-50); IRON 57 ug/dL (50-170); TOTAL IRON BINDING CAPACITY 186 ug/dL (261-478); TRANSFERRIN 133 mg/dL (180-382)
[2020-09-16] MEDS: METOPROLOL TARTRATE 25 MG TAB PO SCH (17:20)
[2020-09-16] MEDS: SODIUM BICARBONATE 8.4% SYRING 150 ML in DEXTROSE 5% 1,000 ML IV SCH (17:20)
[2020-09-16] MEDS: ACETAMINOPHEN/CODEINE 300MG - 30MG TAB PO PRN ×2 (17:20→21:40)
[2020-09-17] VITALS (8 sets, daily range): BP systolic 123–185; BP diastolic 59–71
[2020-09-17 06:03] LABS: BASOPHILS # (AUTO) 0.1 (0.0-0.1); BASOPHILS % 0.7 % (0.0-1.0); EOSINOPHILS # (AUTO) 0.7 (0.0-0.4); EOSINOPHILS % 9.2 % (0.0-6.0); HEMATOCRIT 24.5 % (34.2-44.1); HEMOGLOBIN 7.8 g/dL (12.0-16.0); LYMPHOCYTES # (AUTO) 2.3 (1.0-3.2); LYMPHOCYTES % 32.1 % (18.0-39.1); MEAN CORPUSCULAR HEMOGLOBIN 30.1 pg (28-32); MEAN CORPUSCULAR HGB CONC 31.8 g/dL (31-35); MEAN CORPUSCULAR VOLUME 94.6 fL (81-99); MONOCYTES # (AUTO) 0.5 (0.2-0.8); MONOCYTES % 7.4 % (4.4-11.3); NEUTROPHILS # (AUTO) 3.5 (2.1-6.9); NEUTROPHILS % 50.3 % (38.7-80.0); PLATELET COUNT 256 x10e3/uL (140-360); RED BLOOD COUNT 2.59 x10e6/uL (3.6-5.1); RED CELL DISTRIBUTION WIDTH 12.6 % (11.7-14.4)
[2020-09-17 06:24] LABS: ANION GAP 15.2 mmol/L (8-16); CREATININE, SERUM 3.81 mg/dL (0.57-1.11); POTASSIUM 3.2 mmol/L (3.5-5.1)
[2020-09-17 06:32] LABS: CALCIUM 6.5 mg/dL (8.4-10.2)
[2020-09-17] MEDS: INSULIN REGULAR, HUMAN 100 UNIT/1 ML 3ML VIAL SQ SCH ×4 (07:30→21:28)
[2020-09-17] MEDS ORDERED: POTASSIUM CHLORIDE 20 MEQ TAB CR PO ONE (09:30)
[2020-09-17] MEDS: FAMOTIDINE 20 MG TAB PO SCH (09:43)
[2020-09-17] MEDS: CEFTRIAXONE 1 GM in SODIUM CHLORIDE 0.9% 50ML 50 ML IV SCH (09:43)
[2020-09-17] MEDS: GABAPENTIN 400 MG CAP PO SCH (09:44)
[2020-09-17] MEDS: METOPROLOL TARTRATE 25 MG TAB PO SCH ×2 (09:44→17:29)
[2020-09-17] MEDS: SODIUM BICARBONATE 8.4% SYRING 150 ML in DEXTROSE 5% 1,000 ML IV SCH (09:44)
[2020-09-17] MEDS: ATORVASTATIN 10 MG TAB PO SCH (09:44)
[2020-09-17] MEDS: SODIUM BICARBONATE 650 MG TAB PO SCH ×2 (09:44→17:29)
[2020-09-17] MEDS: HEPARIN SOD (PORCINE) 5,000 UNIT/ML VIAL SC SCH ×2 (09:44→21:28)
[2020-09-17] MEDS: FUROSEMIDE 20 MG TAB PO SCH ×2 (09:44→17:29)
[2020-09-17] MEDS ORDERED: CALCIUM GLUCONATE 10% INJ 4.65 MEQ in SODIUM CHLORIDE 0.9% 50ML 50 ML IV ONE (10:00)
[2020-09-17] MEDS: HYDRALAZINE HCL 20 MG/ML VIAL IV PRN (12:22)
[2020-09-17] MEDS: NIFEDIPINE CR 30 MG TAB PO SCH (13:09)
[2020-09-17] MEDS: ACETAMINOPHEN/CODEINE 300MG - 30MG TAB PO PRN ×3 (13:10→22:15)
[2020-09-17] MEDS ORDERED: VALPROATE SOD INJ 500 MG in SODIUM CHLORIDE 0.9% 100 ML 100 ML IV SCH (15:00)
[2020-09-17] MEDS: TOPIRAMATE 25 MG TAB PO SCH (17:29)
[2020-09-18] VITALS (10 sets, daily range): BP systolic 96–139; BP diastolic 43–67
[2020-09-18] MEDS: INSULIN REGULAR, HUMAN 100 UNIT/1 ML 3ML VIAL SQ SCH ×4 (07:30→20:56)
[2020-09-18] MEDS: METOPROLOL TARTRATE 25 MG TAB PO SCH ×3 (09:00→17:00)
[2020-09-18] MEDS: NIFEDIPINE CR 30 MG TAB PO SCH (09:00)
[2020-09-18] MEDS: HEPARIN SOD (PORCINE) 5,000 UNIT/ML VIAL SC SCH ×2 (09:00→20:30)
[2020-09-18 09:03] LABS: ANION GAP 19.5 mmol/L (8-16); CREATININE, SERUM 4.57 mg/dL (0.57-1.11); POTASSIUM 3.5 mmol/L (3.5-5.1)
[2020-09-18 09:06] LABS: CALCIUM 6.4 mg/dL (8.4-10.2)
[2020-09-18] MEDS: FAMOTIDINE 20 MG TAB PO SCH (09:27)
[2020-09-18] MEDS: TOPIRAMATE 25 MG TAB PO SCH ×2 (09:28→17:10)
[2020-09-18] MEDS: ATORVASTATIN 10 MG TAB PO SCH (09:28)
[2020-09-18] MEDS: CEFTRIAXONE 1 GM in SODIUM CHLORIDE 0.9% 50ML 50 ML IV SCH (09:28)
[2020-09-18] MEDS: FUROSEMIDE 20 MG TAB PO SCH ×2 (09:28→17:10)
[2020-09-18] MEDS: SODIUM BICARBONATE 650 MG TAB PO SCH ×2 (09:28→17:10)
[2020-09-18] MEDS: GABAPENTIN 400 MG CAP PO SCH (09:28)
[2020-09-18] MEDS ORDERED: CALCIUM GLUCONATE 10% INJ 4.65 MEQ in SODIUM CHLORIDE 0.9% 50ML 50 ML IV ONE (11:30)
[2020-09-18] MEDS: SODIUM BICARBONATE 8.4% SYRING 150 ML in DEXTROSE 5% 1,000 ML IV SCH (15:51)
[2020-09-18] MEDS: ACETAMINOPHEN/CODEINE 300MG - 30MG TAB PO PRN ×2 (16:10→20:30)
[2020-09-18] MEDS ORDERED: ONDANSETRON HCL 4 MG ORAL DISINTEGRATING TAB PO PRN (16:30)
[2020-09-19] VITALS (8 sets, daily range): BP systolic 100–139; BP diastolic 57–75
[2020-09-19 05:32] LABS: BASOPHILS % 0.5 % (0.0-1.0); EOSINOPHILS # (AUTO) 0.5 (0.0-0.4); EOSINOPHILS % 6.1 % (0.0-6.0); HEMATOCRIT 23.6 % (34.2-44.1); HEMOGLOBIN 7.5 g/dL (12.0-16.0); LYMPHOCYTES # (AUTO) 2.2 (1.0-3.2); LYMPHOCYTES % 29.1 % (18.0-39.1); MEAN CORPUSCULAR HEMOGLOBIN 30.4 pg (28-32); MEAN CORPUSCULAR HGB CONC 31.8 g/dL (31-35); MEAN CORPUSCULAR VOLUME 95.5 fL (81-99); MONOCYTES # (AUTO) 0.5 (0.2-0.8); MONOCYTES % 6.6 % (4.4-11.3); NEUTROPHILS # (AUTO) 4.3 (2.1-6.9); NEUTROPHILS % 57.3 % (38.7-80.0); PLATELET COUNT 264 x10e3/uL (140-360); RED BLOOD COUNT 2.47 x10e6/uL (3.6-5.1); RED CELL DISTRIBUTION WIDTH 12.4 % (11.7-14.4)
[2020-09-19 06:55] LABS: INR 0.86; PARTIAL THROMBOPLASTIN TIME 34.4 seconds (23.8-35.5); PROTHROMBIN TIME 12.3 seconds (11.9-14.5)
[2020-09-19 07:10] LABS: ANION GAP 17.3 mmol/L (8-16); CREATININE, SERUM 4.32 mg/dL (0.57-1.11); POTASSIUM 3.3 mmol/L (3.5-5.1)
[2020-09-19 07:15] LABS: CALCIUM 6.1 mg/dL (8.4-10.2)
[2020-09-19] MEDS: INSULIN REGULAR, HUMAN 100 UNIT/1 ML 3ML VIAL SQ SCH ×4 (07:30→21:00)
[2020-09-19] MEDS: FAMOTIDINE 20 MG TAB PO SCH (07:30)
[2020-09-19] MEDS ORDERED: OYST-CAL-D 500MG TABLET PO SCH ×2 (09:00→17:00)
[2020-09-19] MEDS: METOPROLOL TARTRATE 25 MG TAB PO SCH ×2 (09:00→17:00)
[2020-09-19] MEDS ORDERED: EPOETIN ALFA-EPBX 10,000 UNIT/ML VIAL SC ONE (09:00)
[2020-09-19] MEDS: NIFEDIPINE CR 30 MG TAB PO SCH (09:00)
[2020-09-19] MEDS: HEPARIN SOD (PORCINE) 5,000 UNIT/ML VIAL SC SCH ×2 (09:00→21:27)
[2020-09-19] MEDS: CEFTRIAXONE 1 GM in SODIUM CHLORIDE 0.9% 50ML 50 ML IV SCH (09:00)
[2020-09-19] MEDS: ATORVASTATIN 10 MG TAB PO SCH (09:00)
[2020-09-19] MEDS: TOPIRAMATE 25 MG TAB PO SCH ×2 (09:00→17:00)
[2020-09-19] MEDS: GABAPENTIN 400 MG CAP PO SCH (09:00)
[2020-09-19] MEDS: FUROSEMIDE 20 MG TAB PO SCH ×2 (09:00→17:00)
[2020-09-19] MEDS: ACETAMINOPHEN/CODEINE 300MG - 30MG TAB PO PRN (15:00)
[2020-09-19] MEDS ORDERED: CYANOCOBALAMIN 1,000 MCG TAB PO ONE (16:20)
[2020-09-19] MEDS ORDERED: POTASSIUM CHLORIDE 10MEQ EA PO ONE (17:00)
[2020-09-20] VITALS (16 sets, daily range): BP systolic 122–169; BP diastolic 48–74
[2020-09-20] MEDS: ACETAMINOPHEN/CODEINE 300MG - 30MG TAB PO PRN (00:10)
[2020-09-20 05:12] LABS: HEMATOCRIT 25.4 % (34.2-44.1); HEMOGLOBIN 8.1 g/dL (12.0-16.0)
[2020-09-20 06:07] LABS: ANION GAP 17.7 mmol/L (8-16); CREATININE, SERUM 4.59 mg/dL (0.57-1.11); POTASSIUM 3.7 mmol/L (3.5-5.1)
[2020-09-20 06:08] LABS: CALCIUM 6.1 mg/dL (8.4-10.2)
[2020-09-20] MEDS: INSULIN REGULAR, HUMAN 100 UNIT/1 ML 3ML VIAL SQ SCH ×4 (07:30→21:00)
[2020-09-20] MEDS: FAMOTIDINE 20 MG TAB PO SCH (08:40)
[2020-09-20] MEDS: FUROSEMIDE 20 MG TAB PO SCH ×2 (08:54→17:24)
[2020-09-20] MEDS: NIFEDIPINE CR 30 MG TAB PO SCH (08:54)
[2020-09-20] MEDS: TOPIRAMATE 25 MG TAB PO SCH (08:54)
[2020-09-20] MEDS: ATORVASTATIN 10 MG TAB PO SCH (08:54)
[2020-09-20] MEDS: GABAPENTIN 400 MG CAP PO SCH (08:54)
[2020-09-20] MEDS: HEPARIN SOD (PORCINE) 5,000 UNIT/ML VIAL SC SCH ×2 (08:54→21:02)
[2020-09-20] MEDS: OYST-CAL-D 500MG TABLET PO SCH (08:54)
[2020-09-20] MEDS: METOPROLOL TARTRATE 25 MG TAB PO SCH ×2 (08:54→17:24)
[2020-09-20] MEDS: CEFTRIAXONE 1 GM in SODIUM CHLORIDE 0.9% 50ML 50 ML IV SCH (08:54)
[2020-09-20] MEDS ORDERED: EPOETIN ALFA-EPBX 10,000 UNIT/ML VIAL SC ONE (11:00)
[2020-09-20] MEDS: CALCIUM ACETATE 667 MG GELCAP PO SCH ×2 (11:53→17:24)
[2020-09-20] MEDS ORDERED: HEPARIN SOD (PORCINE) 5,000 UNIT/ML VIAL ONE (13:24)
[2020-09-20] MEDS ORDERED: THROMBIN FOR SOLN 5,000 UNIT VIAL ONE (13:25)
[2020-09-20] MEDS ORDERED: BUPIVACAINE HCL 0.5% INJ 30 ML VIAL INJ ONE (13:25)
[2020-09-20] MEDS ORDERED: SODIUM CHLORIDE 0.9% 500ML 500 ML ONE (13:25)
[2020-09-20] MEDS ORDERED: HEPARIN SOD (PORCINE) 1000 UNIT/ML 30ML ONE (13:35)
[2020-09-20] MEDS ORDERED: PROTAMINE SULFATE 10 MG/ML 5 ML VIAL ONE (13:35)
[2020-09-20] MEDS ORDERED: HEPARIN SOD/SOD CHLORIDE 1,000 ML ONE (14:21)
[2020-09-20 14:58] LABS: ABG HCO3 34 mmol/L (22-26); ABG PCO2 57 mmHg (35-45); ABG PH 7.39 (7.35-7.45); ABG PO2 60 mmHg (80-105)
[2020-09-20 14:59] LABS: ABG TCO2 36
[2020-09-20 16:11] LABS: BASOPHILS # (AUTO) 0.1 (0.0-0.1); BASOPHILS % 0.5 % (0.0-1.0); EOSINOPHILS # (AUTO) 0.3 (0.0-0.4); EOSINOPHILS % 2.4 % (0.0-6.0); HEMATOCRIT 26.8 % (34.2-44.1); HEMOGLOBIN 8.4 g/dL (12.0-16.0); LYMPHOCYTES # (AUTO) 1.1 (1.0-3.2); LYMPHOCYTES % 8.5 % (18.0-39.1); MEAN CORPUSCULAR HEMOGLOBIN 29.9 pg (28-32); MEAN CORPUSCULAR HGB CONC 31.3 g/dL (31-35); MEAN CORPUSCULAR VOLUME 95.4 fL (81-99); MONOCYTES # (AUTO) 0.7 (0.2-0.8); MONOCYTES % 5.1 % (4.4-11.3); NEUTROPHILS # (AUTO) 10.9 (2.1-6.9); NEUTROPHILS % 82.8 % (38.7-80.0); PLATELET COUNT 290 x10e3/uL (140-360); RED BLOOD COUNT 2.81 x10e6/uL (3.6-5.1); RED CELL DISTRIBUTION WIDTH 12.1 % (11.7-14.4)
[2020-09-20 16:29] LABS: ANION GAP 18.9 mmol/L (8-16); CREATININE, SERUM 4.55 mg/dL (0.57-1.11); POTASSIUM 3.9 mmol/L (3.5-5.1)
[2020-09-20] MEDS: DOCUSATE SODIUM 100 MG CAP PO SCH (17:24)
[2020-09-20 18:07] LABS: INR 0.93; PARTIAL THROMBOPLASTIN TIME 23.9 seconds (23.8-35.5); PROTHROMBIN TIME 10.3 seconds (11.9-14.5)
[2020-09-20] MEDS ORDERED: HEPARIN 25,000 UNIT 1,600 UNIT in DEXTROSE 5% 250ML 250 ML IV SCH (21:15)
[2020-09-20] MEDS ORDERED: HEPARIN SOD (PORCINE) 5,000 UNIT/ML VIAL IV ONE (21:15)
[2020-09-20] MEDS ORDERED: HEPARIN 25,000 UNIT DRIP IV ONE ×2 (21:27→21:28)
[2020-09-20] MEDS: HEPARIN 25,000 UNIT 1,600 UNIT in DEXTROSE 5% 250ML 250 ML IV PRN (21:30)
[2020-09-20] MEDS: HYDRALAZINE HCL 20 MG/ML VIAL IV PRN (22:44)
[2020-09-21] VITALS (18 sets, daily range): BP systolic 139–176; BP diastolic 37–58
[2020-09-21] MEDS: HYDRALAZINE HCL 20 MG/ML VIAL IV PRN (03:17)
[2020-09-21 04:01] LABS: BASOPHILS # (AUTO) 0.1 (0.0-0.1); BASOPHILS % 0.4 % (0.0-1.0); EOSINOPHILS # (AUTO) 0.2 (0.0-0.4); EOSINOPHILS % 1.7 % (0.0-6.0); HEMATOCRIT 24.2 % (34.2-44.1); HEMOGLOBIN 7.6 g/dL (12.0-16.0); LYMPHOCYTES # (AUTO) 1.9 (1.0-3.2); LYMPHOCYTES % 15.1 % (18.0-39.1); MEAN CORPUSCULAR HEMOGLOBIN 29.9 pg (28-32); MEAN CORPUSCULAR HGB CONC 31.4 g/dL (31-35); MEAN CORPUSCULAR VOLUME 95.3 fL (81-99); MONOCYTES # (AUTO) 0.8 (0.2-0.8); MONOCYTES % 6.7 % (4.4-11.3); NEUTROPHILS # (AUTO) 9.3 (2.1-6.9); NEUTROPHILS % 75.4 % (38.7-80.0); PLATELET COUNT 289 x10e3/uL (140-360); RED BLOOD COUNT 2.54 x10e6/uL (3.6-5.1)
[2020-09-21 04:08] LABS: INR 0.92; PROTHROMBIN TIME 12.9 seconds (11.9-14.5)
[2020-09-21 04:09] LABS: PARTIAL THROMBOPLASTIN TIME 47.1 seconds (23.8-35.5)
[2020-09-21 04:15] LABS: ANION GAP 18.6 mmol/L (8-16); CREATININE, SERUM 4.43 mg/dL (0.57-1.11); POTASSIUM 3.6 mmol/L (3.5-5.1)
[2020-09-21] MEDS: INSULIN REGULAR, HUMAN 100 UNIT/1 ML 3ML VIAL SQ SCH ×4 (07:20→21:15)
[2020-09-21] MEDS: FAMOTIDINE 20 MG TAB PO SCH (07:30)
[2020-09-21] MEDS: CALCIUM ACETATE 667 MG GELCAP PO SCH ×3 (08:00→16:17)
[2020-09-21] MEDS: CEFTRIAXONE 1 GM in SODIUM CHLORIDE 0.9% 50ML 50 ML IV SCH (08:15)
[2020-09-21] MEDS: METOPROLOL TARTRATE 25 MG TAB PO SCH ×2 (09:00→16:17)
[2020-09-21] MEDS: NIFEDIPINE CR 30 MG TAB PO SCH (09:00)
[2020-09-21] MEDS: DOCUSATE SODIUM 100 MG CAP PO SCH ×2 (09:00→16:17)
[2020-09-21] MEDS: ATORVASTATIN 10 MG TAB PO SCH (09:00)
[2020-09-21] MEDS: FUROSEMIDE 20 MG TAB PO SCH (09:00)
[2020-09-21] MEDS: OYST-CAL-D 500MG TABLET PO SCH (09:00)
[2020-09-21 09:55] LABS: ABG PH 7.41 (7.35-7.45)
[2020-09-21 09:56] LABS: ABG HCO3 31 mmol/L (22-26); ABG PCO2 48 mmHg (35-45); ABG PO2 79 mmHg (80-105); ABG TCO2 32
[2020-09-21] MEDS: CLINDAMYCIN PHOS 900MG/ 50ML 50 ML IV SCH ×3 (10:16→21:53)
[2020-09-21] MEDS: ALBUTEROL/IPRATROPIUM 3 ML NEB NEB SCH ×4 (11:01→23:45)
[2020-09-21] MEDS: HEPARIN 25,000 UNIT 1,600 UNIT in DEXTROSE 5% 250ML 250 ML IV PRN (12:08)
[2020-09-21] MEDS ORDERED: HEPARIN 25,000 UNIT DRIP IV ONE (16:30)
[2020-09-21] MEDS: ACETAMINOPHEN/CODEINE 300MG - 30MG TAB PO PRN (20:20)
[2020-09-21] MEDS: ACETAMINOPHEN 325 MG SUPP PR PRN (20:21)
[2020-09-22] VITALS (15 sets, daily range): BP systolic 121–179; BP diastolic 43–76
[2020-09-22] MEDS: ALBUTEROL/IPRATROPIUM 3 ML NEB NEB SCH ×6 (00:10→19:40)
[2020-09-22] MEDS: HYDRALAZINE HCL 20 MG/ML VIAL IV PRN (03:20)
[2020-09-22] MEDS: CLINDAMYCIN PHOS 900MG/ 50ML 50 ML IV SCH ×4 (04:21→21:56)
[2020-09-22] MEDS: ACETAMINOPHEN 325 MG SUPP PR PRN (04:26)
[2020-09-22 05:59] LABS: BASOPHILS # (AUTO) 0.1 (0.0-0.1); BASOPHILS % 0.3 % (0.0-1.0); EOSINOPHILS % 0.1 % (0.0-6.0); HEMOGLOBIN 7.2 g/dL (12.0-16.0); LYMPHOCYTES # (AUTO) 0.9 (1.0-3.2); LYMPHOCYTES % 4.8 % (18.0-39.1); MEAN CORPUSCULAR HEMOGLOBIN 31.4 pg (28-32); MEAN CORPUSCULAR HGB CONC 32.3 g/dL (31-35); MEAN CORPUSCULAR VOLUME 97.4 fL (81-99); MONOCYTES # (AUTO) 1.4 (0.2-0.8); MONOCYTES % 7.5 % (4.4-11.3); NEUTROPHILS # (AUTO) 16.3 (2.1-6.9); NEUTROPHILS % 86.3 % (38.7-80.0); PLATELET COUNT 290 x10e3/uL (140-360); RED BLOOD COUNT 2.29 x10e6/uL (3.6-5.1); RED CELL DISTRIBUTION WIDTH 12.3 % (11.7-14.4)
[2020-09-22 06:06] LABS: HEMATOCRIT 22.3 % (34.2-44.1)
[2020-09-22 06:18] LABS: ANION GAP 17.5 mmol/L (8-16); CREATININE, SERUM 4.21 mg/dL (0.57-1.11); POTASSIUM 3.5 mmol/L (3.5-5.1)
[2020-09-22 06:19] LABS: CALCIUM 6.8 mg/dL (8.4-10.2)
[2020-09-22] MEDS: HEPARIN 25,000 UNIT 1,600 UNIT in DEXTROSE 5% 250ML 250 ML IV PRN ×2 (07:15→14:55)
[2020-09-22] MEDS: INSULIN REGULAR, HUMAN 100 UNIT/1 ML 3ML VIAL SQ SCH ×4 (07:33→20:34)
[2020-09-22] MEDS ORDERED: FUROSEMIDE INJ 10 MG/ML 2 ML VIAL IV SCH (09:00)
[2020-09-22] MEDS: METOPROLOL TARTRATE 25 MG TAB PO SCH ×2 (10:06→16:50)
[2020-09-22] MEDS: DOCUSATE SODIUM 100 MG CAP PO SCH ×2 (10:06→16:49)
[2020-09-22] MEDS: CALCIUM ACETATE 667 MG GELCAP PO SCH ×3 (10:06→16:50)
[2020-09-22] MEDS: NIFEDIPINE CR 30 MG TAB PO SCH (10:06)
[2020-09-22] MEDS: ATORVASTATIN 10 MG TAB PO SCH (10:06)
[2020-09-22] MEDS: OYST-CAL-D 500MG TABLET PO SCH (10:06)
[2020-09-22] MEDS: FAMOTIDINE 20 MG TAB PO SCH (10:06)
[2020-09-22] MEDS ORDERED: EPOETIN ALFA-EPBX 10,000 UNIT/ML VIAL SC ONE (10:35)
[2020-09-22] MEDS: CEFEPIME 1 GM in SODIUM CHLORIDE 0.9% 50ML 50 ML IV SCH ×2 (10:36→16:49)
[2020-09-22] MEDS: FUROSEMIDE INJ 10 MG/ML 4 ML VIAL IV SCH ×2 (14:01→21:56)
[2020-09-23] VITALS (25 sets, daily range): BP systolic 96–128; BP diastolic 34–55
[2020-09-23] MEDS: CEFEPIME 1 GM in SODIUM CHLORIDE 0.9% 50ML 50 ML IV SCH ×3 (00:52→16:50)
[2020-09-23] MEDS: ALBUTEROL/IPRATROPIUM 3 ML NEB NEB SCH ×6 (04:00→23:55)
[2020-09-23] MEDS: CLINDAMYCIN PHOS 900MG/ 50ML 50 ML IV SCH ×4 (04:19→20:19)
[2020-09-23 04:40] LABS: BASOPHILS # (AUTO) 0.1 (0.0-0.1); BASOPHILS % 0.4 % (0.0-1.0); EOSINOPHILS # (AUTO) 0.2 (0.0-0.4); EOSINOPHILS % 1.3 % (0.0-6.0); HEMATOCRIT 22.6 % (34.2-44.1); HEMOGLOBIN 7.2 g/dL (12.0-16.0); LYMPHOCYTES # (AUTO) 2.3 (1.0-3.2); LYMPHOCYTES % 13.7 % (18.0-39.1); MEAN CORPUSCULAR HEMOGLOBIN 30.6 pg (28-32); MEAN CORPUSCULAR HGB CONC 31.9 g/dL (31-35); MEAN CORPUSCULAR VOLUME 96.2 fL (81-99); MONOCYTES # (AUTO) 1.7 (0.2-0.8); MONOCYTES % 10.1 % (4.4-11.3); NEUTROPHILS # (AUTO) 12.6 (2.1-6.9); NEUTROPHILS % 73.5 % (38.7-80.0); PLATELET COUNT 272 x10e3/uL (140-360); RED BLOOD COUNT 2.35 x10e6/uL (3.6-5.1); RED CELL DISTRIBUTION WIDTH 12.1 % (11.7-14.4)
[2020-09-23 05:00] LABS: ALBUMIN 2.1 g/dL (3.5-5.0); BILIRUBIN,DIRECT 0.2 mg/dL (0.0-0.5); CALCIUM 7.1 mg/dL (8.4-10.2); CREATININE, SERUM 4.26 mg/dL (0.57-1.11)
[2020-09-23] MEDS: FUROSEMIDE INJ 10 MG/ML 4 ML VIAL IV SCH ×3 (06:07→20:19)
[2020-09-23] MEDS: ACETAMINOPHEN 325 MG TAB PO PRN (06:46)
[2020-09-23] MEDS: INSULIN REGULAR, HUMAN 100 UNIT/1 ML 3ML VIAL SQ SCH ×4 (07:30→20:27)
[2020-09-23] MEDS: FAMOTIDINE 20 MG TAB PO SCH (07:30)
[2020-09-23] MEDS: CALCIUM ACETATE 667 MG GELCAP PO SCH ×3 (08:00→16:50)
[2020-09-23] MEDS: OYST-CAL-D 500MG TABLET PO SCH (09:41)
[2020-09-23] MEDS: METOPROLOL TARTRATE 25 MG TAB PO SCH ×2 (09:41→16:51)
[2020-09-23] MEDS: NIFEDIPINE CR 30 MG TAB PO SCH (09:41)
[2020-09-23] MEDS: DOCUSATE SODIUM 100 MG CAP PO SCH ×2 (09:41→16:50)
[2020-09-23] MEDS: ATORVASTATIN 10 MG TAB PO SCH (09:41)
[2020-09-24] VITALS (19 sets, daily range): BP systolic 111–146; BP diastolic 35–92
[2020-09-24] MEDS: CEFEPIME 1 GM in SODIUM CHLORIDE 0.9% 50ML 50 ML IV SCH ×3 (01:08→16:27)
[2020-09-24] MEDS ORDERED: SODIUM CHLORIDE 0.9% 250ML 250 ML ONE (03:16)
[2020-09-24] MEDS: CLINDAMYCIN PHOS 900MG/ 50ML 50 ML IV SCH ×4 (03:26→22:40)
[2020-09-24] MEDS: ALBUTEROL/IPRATROPIUM 3 ML NEB NEB SCH ×6 (03:40→23:20)
[2020-09-24 05:12] LABS: BASOPHILS % 0.3 % (0.0-1.0); EOSINOPHILS # (AUTO) 0.4 (0.0-0.4); EOSINOPHILS % 2.4 % (0.0-6.0); LYMPHOCYTES % 13.1 % (18.0-39.1); MEAN CORPUSCULAR HEMOGLOBIN 30.1 pg (28-32); MEAN CORPUSCULAR HGB CONC 30.8 g/dL (31-35); MEAN CORPUSCULAR VOLUME 97.7 fL (81-99); MONOCYTES # (AUTO) 1.8 (0.2-0.8); MONOCYTES % 11.9 % (4.4-11.3); NEUTROPHILS # (AUTO) 10.7 (2.1-6.9); NEUTROPHILS % 70.8 % (38.7-80.0); PLATELET COUNT 275 x10e3/uL (140-360); RED BLOOD COUNT 2.16 x10e6/uL (3.6-5.1); RED CELL DISTRIBUTION WIDTH 12.2 % (11.7-14.4)
[2020-09-24 05:20] LABS: HEMOGLOBIN 6.5 g/dL (12.0-16.0)
[2020-09-24 05:21] LABS: HEMATOCRIT 21.1 % (34.2-44.1)
[2020-09-24 05:31] LABS: ALBUMIN/GLOBULIN RATIO 0.5 (0.8-2.0); ANION GAP 18.1 mmol/L (8-16); CREATININE, SERUM 4.41 mg/dL (0.57-1.11); POTASSIUM 4.1 mmol/L (3.5-5.1)
[2020-09-24 05:43] LABS: MAGNESIUM 1.5 MG/DL (1.3-2.1); PHOSPHORUS 6.9 MG/DL (2.3-4.7)
[2020-09-24] MEDS ORDERED: DIPHENHYDRAMINE HCL INJ 50 MG/ML VIAL IV PRN (05:45)
[2020-09-24] MEDS ORDERED: SODIUM CHLORIDE 0.9% 250ML 250 ML IV PRN (05:45)
[2020-09-24] MEDS: FUROSEMIDE INJ 10 MG/ML 4 ML VIAL IV SCH ×3 (06:00→22:40)
[2020-09-24] MEDS ORDERED: FUROSEMIDE INJ 10 MG/ML 4 ML VIAL IV PRN (06:30)
[2020-09-24] MEDS: INSULIN REGULAR, HUMAN 100 UNIT/1 ML 3ML VIAL SQ SCH ×4 (07:30→21:00)
[2020-09-24] MEDS: FAMOTIDINE 20 MG TAB PO SCH (08:23)
[2020-09-24] MEDS: DOCUSATE SODIUM 100 MG CAP PO SCH ×2 (08:23→16:27)
[2020-09-24] MEDS: METOPROLOL TARTRATE 25 MG TAB PO SCH ×2 (08:23→16:28)
[2020-09-24] MEDS: OYST-CAL-D 500MG TABLET PO SCH (08:23)
[2020-09-24] MEDS: ATORVASTATIN 10 MG TAB PO SCH (08:23)
[2020-09-24] MEDS: CALCIUM ACETATE 667 MG GELCAP PO SCH ×3 (08:23→16:28)
[2020-09-24] MEDS: NIFEDIPINE CR 30 MG TAB PO SCH (08:24)
[2020-09-24] MEDS ORDERED: EPOETIN ALFA-EPBX 10,000 UNIT/ML VIAL SC NR (12:30)
[2020-09-24] MEDS: ACETAMINOPHEN 325 MG TAB PO PRN (14:12)
[2020-09-25] VITALS (8 sets, daily range): BP systolic 145–157; BP diastolic 63–74
[2020-09-25] MEDS: CEFEPIME 1 GM in SODIUM CHLORIDE 0.9% 50ML 50 ML IV SCH ×2 (00:29→09:02)
[2020-09-25] MEDS: ACETAMINOPHEN 325 MG TAB PO PRN (00:38)
[2020-09-25] MEDS: ALBUTEROL/IPRATROPIUM 3 ML NEB NEB SCH ×6 (02:40→23:30)
[2020-09-25] MEDS: CLINDAMYCIN PHOS 900MG/ 50ML 50 ML IV SCH ×3 (04:18→17:19)
[2020-09-25] MEDS: FUROSEMIDE INJ 10 MG/ML 4 ML VIAL IV SCH (06:00)
[2020-09-25 06:15] LABS: BASOPHILS # (AUTO) 0.1 (0.0-0.1); BASOPHILS % 0.4 % (0.0-1.0); EOSINOPHILS # (AUTO) 0.4 (0.0-0.4); EOSINOPHILS % 2.5 % (0.0-6.0); HEMATOCRIT 23.3 % (34.2-44.1); HEMOGLOBIN 7.4 g/dL (12.0-16.0); LYMPHOCYTES # (AUTO) 1.3 (1.0-3.2); LYMPHOCYTES % 8.5 % (18.0-39.1); MEAN CORPUSCULAR HEMOGLOBIN 30.7 pg (28-32); MEAN CORPUSCULAR HGB CONC 31.8 g/dL (31-35); MEAN CORPUSCULAR VOLUME 96.7 fL (81-99); MONOCYTES # (AUTO) 1.8 (0.2-0.8); MONOCYTES % 11.5 % (4.4-11.3); NEUTROPHILS # (AUTO) 11.6 (2.1-6.9); NEUTROPHILS % 75.6 % (38.7-80.0); PLATELET COUNT 286 x10e3/uL (140-360); RED BLOOD COUNT 2.41 x10e6/uL (3.6-5.1); RED CELL DISTRIBUTION WIDTH 12.6 % (11.7-14.4)
[2020-09-25 06:40] LABS: ANION GAP 18.9 mmol/L (8-16); CALCIUM 7.6 mg/dL (8.4-10.2); CREATININE, SERUM 4.74 mg/dL (0.57-1.11); POTASSIUM 3.9 mmol/L (3.5-5.1)
[2020-09-25] MEDS: INSULIN REGULAR, HUMAN 100 UNIT/1 ML 3ML VIAL SQ SCH (07:30)
[2020-09-25] MEDS: FAMOTIDINE 20 MG TAB PO SCH (07:30)
[2020-09-25] MEDS: CALCIUM ACETATE 667 MG GELCAP PO SCH ×3 (09:01→16:50)
[2020-09-25] MEDS: ATORVASTATIN 10 MG TAB PO SCH (09:03)
[2020-09-25] MEDS: DOCUSATE SODIUM 100 MG CAP PO SCH ×2 (09:03→16:50)
[2020-09-25] MEDS: METOPROLOL TARTRATE 25 MG TAB PO SCH ×2 (09:03→16:50)
[2020-09-25] MEDS: OYST-CAL-D 500MG TABLET PO SCH (09:04)
[2020-09-25] MEDS: CALCITRIOL 0.25 MCG CAP PO SCH (09:05)
[2020-09-25] MEDS: NIFEDIPINE CR 30 MG TAB PO SCH (09:05)
[2020-09-25] MEDS ORDERED: CLINDAMYCIN PHOS 900MG/ 50ML 50 ML IV SCH (10:15)
[2020-09-25] MEDS: INSULIN LISPRO 100 UNIT/1 ML 3ML VIAL SQ SCH ×3 (11:30→21:00)
[2020-09-25] MEDS: ACETAMINOPHEN/CODEINE 300MG - 30MG TAB PO PRN (12:30)
[2020-09-25] MEDS ORDERED: BENZONATATE 100 MG CAP PO PRN (13:15)
[2020-09-26] VITALS (8 sets, daily range): BP systolic 128–165; BP diastolic 56–71
[2020-09-26] MEDS: CLINDAMYCIN PHOS 900MG/ 50ML 50 ML IV SCH (02:17)
[2020-09-26] MEDS: ALBUTEROL/IPRATROPIUM 3 ML NEB NEB SCH ×6 (03:40→23:25)
[2020-09-26 05:12] LABS: BASOPHILS # (AUTO) 0.1 (0.0-0.1); BASOPHILS % 0.5 % (0.0-1.0); EOSINOPHILS # (AUTO) 0.6 (0.0-0.4); HEMATOCRIT 23.8 % (34.2-44.1); HEMOGLOBIN 7.4 g/dL (12.0-16.0); LYMPHOCYTES # (AUTO) 1.5 (1.0-3.2); LYMPHOCYTES % 9.9 % (18.0-39.1); MEAN CORPUSCULAR HEMOGLOBIN 30.3 pg (28-32); MEAN CORPUSCULAR HGB CONC 31.1 g/dL (31-35); MEAN CORPUSCULAR VOLUME 97.5 fL (81-99); MONOCYTES # (AUTO) 1.7 (0.2-0.8); NEUTROPHILS # (AUTO) 11.3 (2.1-6.9); NEUTROPHILS % 73.3 % (38.7-80.0); PLATELET COUNT 275 x10e3/uL (140-360); RED BLOOD COUNT 2.44 x10e6/uL (3.6-5.1); RED CELL DISTRIBUTION WIDTH 12.6 % (11.7-14.4)
[2020-09-26 05:43] LABS: ANION GAP 16.7 mmol/L (8-16); CREATININE, SERUM 4.33 mg/dL (0.57-1.11); POTASSIUM 3.7 mmol/L (3.5-5.1)
[2020-09-26] MEDS: INSULIN LISPRO 100 UNIT/1 ML 3ML VIAL SQ SCH ×4 (07:30→20:08)
[2020-09-26] MEDS ORDERED: CEFEPIME 1 GM in SODIUM CHLORIDE 0.9% 50ML 50 ML IV SCH (09:00)
[2020-09-26] MEDS: DOCUSATE SODIUM 100 MG CAP PO SCH ×2 (10:33→16:55)
[2020-09-26] MEDS: ATORVASTATIN 10 MG TAB PO SCH (10:33)
[2020-09-26] MEDS: CALCITRIOL 0.25 MCG CAP PO SCH (10:34)
[2020-09-26] MEDS: NIFEDIPINE CR 30 MG TAB PO SCH (10:34)
[2020-09-26] MEDS: OYST-CAL-D 500MG TABLET PO SCH (10:37)
[2020-09-26] MEDS: METOPROLOL TARTRATE 25 MG TAB PO SCH ×2 (10:37→16:57)
[2020-09-26] MEDS: CALCIUM ACETATE 667 MG GELCAP PO SCH ×3 (10:42→16:55)
[2020-09-26] MEDS: FAMOTIDINE 20 MG TAB PO SCH (10:46)
[2020-09-26] MEDS ORDERED: EPOETIN ALFA-EPBX 10,000 UNIT/ML VIAL SC SCH (12:00)
[2020-09-26] MEDS: FUROSEMIDE 40 MG TAB PO SCH (16:55)
[2020-09-27] VITALS (8 sets, daily range): BP systolic 151–185; BP diastolic 55–88
[2020-09-27] MEDS: ALBUTEROL/IPRATROPIUM 3 ML NEB NEB SCH ×6 (03:15→23:05)
[2020-09-27] MEDS: FUROSEMIDE 40 MG TAB PO SCH ×2 (05:44→17:00)
[2020-09-27 05:56] LABS: BASOPHILS # (AUTO) 0.1 (0.0-0.1); BASOPHILS % 0.5 % (0.0-1.0); EOSINOPHILS # (AUTO) 0.7 (0.0-0.4); EOSINOPHILS % 5.3 % (0.0-6.0); HEMATOCRIT 23.5 % (34.2-44.1); HEMOGLOBIN 7.3 g/dL (12.0-16.0); LYMPHOCYTES # (AUTO) 1.5 (1.0-3.2); LYMPHOCYTES % 12.1 % (18.0-39.1); MEAN CORPUSCULAR HEMOGLOBIN 30.7 pg (28-32); MEAN CORPUSCULAR HGB CONC 31.1 g/dL (31-35); MEAN CORPUSCULAR VOLUME 98.7 fL (81-99); MONOCYTES # (AUTO) 1.4 (0.2-0.8); MONOCYTES % 11.1 % (4.4-11.3); NEUTROPHILS # (AUTO) 8.9 (2.1-6.9); NEUTROPHILS % 69.7 % (38.7-80.0); PLATELET COUNT 321 x10e3/uL (140-360); RED BLOOD COUNT 2.38 x10e6/uL (3.6-5.1); RED CELL DISTRIBUTION WIDTH 12.7 % (11.7-14.4)
[2020-09-27 06:23] LABS: ANION GAP 17.7 mmol/L (8-16); CALCIUM 8.3 mg/dL (8.4-10.2); CREATININE, SERUM 3.97 mg/dL (0.57-1.11); POTASSIUM 3.7 mmol/L (3.5-5.1)
[2020-09-27] MEDS: INSULIN LISPRO 100 UNIT/1 ML 3ML VIAL SQ SCH ×4 (07:30→20:03)
[2020-09-27] MEDS: FAMOTIDINE 20 MG TAB PO SCH (09:25)
[2020-09-27] MEDS: DOCUSATE SODIUM 100 MG CAP PO SCH ×2 (09:26→16:59)
[2020-09-27] MEDS: ATORVASTATIN 10 MG TAB PO SCH (09:26)
[2020-09-27] MEDS: CALCIUM ACETATE 667 MG GELCAP PO SCH ×3 (09:26→17:00)
[2020-09-27] MEDS: AMOXICILLIN/CLAVULANATE K 500 MG TAB PO SCH (09:26)
[2020-09-27] MEDS: METOPROLOL TARTRATE 25 MG TAB PO SCH ×2 (09:27→17:00)
[2020-09-27] MEDS: OYST-CAL-D 500MG TABLET PO SCH (09:27)
[2020-09-27] MEDS: NIFEDIPINE CR 30 MG TAB PO SCH (09:27)
[2020-09-27] MEDS: CALCITRIOL 0.25 MCG CAP PO SCH (09:27)
[2020-09-27] MEDS: IRON SUCROSE 100 MG in SODIUM CHLORIDE 0.9% 100 ML 100 ML IV SCH (13:05)
[2020-09-27] MEDS: HYDRALAZINE HCL 20 MG/ML VIAL IV PRN (15:02)
[2020-09-28 00:46] VITALS: BP 122/48
[2020-09-28] MEDS: ALBUTEROL/IPRATROPIUM 3 ML NEB NEB SCH ×4 (03:10→15:00)
[2020-09-28 05:22] VITALS: BP 148/61
[2020-09-28 05:56] LABS: BASOPHILS # (AUTO) 0.1 (0.0-0.1); BASOPHILS % 0.6 % (0.0-1.0); EOSINOPHILS # (AUTO) 0.8 (0.0-0.4); EOSINOPHILS % 6.2 % (0.0-6.0); HEMATOCRIT 23.5 % (34.2-44.1); HEMOGLOBIN 7.3 g/dL (12.0-16.0); LYMPHOCYTES # (AUTO) 1.9 (1.0-3.2); LYMPHOCYTES % 14.6 % (18.0-39.1); MEAN CORPUSCULAR HEMOGLOBIN 30.9 pg (28-32); MEAN CORPUSCULAR HGB CONC 31.1 g/dL (31-35); MEAN CORPUSCULAR VOLUME 99.6 fL (81-99); MONOCYTES # (AUTO) 1.5 (0.2-0.8); MONOCYTES % 11.2 % (4.4-11.3); NEUTROPHILS # (AUTO) 8.6 (2.1-6.9); PLATELET COUNT 356 x10e3/uL (140-360); RED BLOOD COUNT 2.36 x10e6/uL (3.6-5.1); RED CELL DISTRIBUTION WIDTH 12.6 % (11.7-14.4)
[2020-09-28] MEDS: FUROSEMIDE 40 MG TAB PO SCH ×2 (06:11→18:11)
[2020-09-28 06:20] LABS: ANION GAP 15.7 mmol/L (8-16); CALCIUM 8.1 mg/dL (8.4-10.2); CREATININE, SERUM 3.72 mg/dL (0.57-1.11); POTASSIUM 3.7 mmol/L (3.5-5.1)
[2020-09-28] MEDS: INSULIN LISPRO 100 UNIT/1 ML 3ML VIAL SQ SCH ×3 (07:30→16:30)
[2020-09-28 08:00] VITALS: BP 140/60
[2020-09-28] MEDS: CALCIUM ACETATE 667 MG GELCAP PO SCH ×3 (08:10→17:26)
[2020-09-28] MEDS: FAMOTIDINE 20 MG TAB PO SCH (08:10)
[2020-09-28] MEDS: OYST-CAL-D 500MG TABLET PO SCH (09:12)
[2020-09-28] MEDS: ATORVASTATIN 10 MG TAB PO SCH (09:12)
[2020-09-28] MEDS: DOCUSATE SODIUM 100 MG CAP PO SCH ×2 (09:12→17:26)
[2020-09-28] MEDS: NIFEDIPINE CR 30 MG TAB PO SCH (09:12)
[2020-09-28] MEDS: AMOXICILLIN/CLAVULANATE K 500 MG TAB PO SCH (09:12)
[2020-09-28] MEDS: METOPROLOL TARTRATE 25 MG TAB PO SCH ×2 (09:13→17:27)
[2020-09-28] MEDS: CALCITRIOL 0.25 MCG CAP PO SCH (09:13)
[2020-09-28] MEDS: ACETAMINOPHEN 325 MG TAB PO PRN (10:00)
[2020-09-28 11:42] VITALS: BP 157/71
[2020-09-28] MEDS: IRON SUCROSE 100 MG in SODIUM CHLORIDE 0.9% 100 ML 100 ML IV SCH (12:56)
[2020-09-28] MEDS ORDERED: AUGMENTIN 500-1 EACH PO (15:08)
[2020-09-28] MEDS ORDERED: NIFEDIPINE ER30 M1 PO (15:08)
[2020-09-28] MEDS ORDERED: FUROSEMIDE40 MG PO (15:08)
[2020-09-28] MEDS ORDERED: LOPRESSOR25 MG PO (15:08)
[2020-09-28] MEDS ORDERED: ROCALTROL0.25 MCG PO (15:08)
[2020-09-28] MEDS ORDERED: Calcium Acetate PO (15:08)
[2020-09-28 15:57] VITALS: BP 152/72
[2020-09-28 20:00] VITALS: BP 161/76
== END 2020-09-28 20:06 | disposition home health service (06) | DRG 871 ==
LOC: ER 09:07 → ERHOLD 11:43 → MED/SURG2 18:35 → ICU 09-20 14:44 → MED/SURG3 09-24 16:50
PROVIDERS: ADMIT Internal Medicine; ATTEND Internal Medicine
PROC: 30233N1 Transfusion of Nonautologous Red Blood Cells into Peripheral Vein, Percutaneous Approach (ICD-10-PCS; principal; 2020-09-24)
DX: A41.9 Sepsis, unspecified organism (principal); G93.41 Metabolic encephalopathy; J96.01 Acute respiratory failure with hypoxia; J69.0 Pneumonitis due to inhalation of food and vomit; G92 Toxic encephalopathy; N17.9 Acute kidney failure, unspecified; E87.2 Acidosis; J81.1 Chronic pulmonary edema; I12.0 Hypertensive chronic kidney disease with stage 5 chronic kidney disease or end stage renal disease; D62 Acute posthemorrhagic anemia; Z68.41 Body mass index [BMI] 40.0-44.9, adult; N18.5 Chronic kidney disease, stage 5; N25.81 Secondary hyperparathyroidism of renal origin; D64.9 Anemia, unspecified; E78.5 Hyperlipidemia, unspecified; Z90.49 Acquired absence of other specified parts of digestive tract; E87.5 Hyperkalemia; E11.22 Type 2 diabetes mellitus with diabetic chronic kidney disease; Z83.3 Family history of diabetes mellitus; E78.00 Pure hypercholesterolemia, unspecified; Z53.8 Procedure and treatment not carried out for other reasons; E11.21 Type 2 diabetes mellitus with diabetic nephropathy; E11.319 Type 2 diabetes mellitus with unspecified diabetic retinopathy without macular edema; E11.42 Type 2 diabetes mellitus with diabetic polyneuropathy; R51.9 Headache, unspecified; E66.01 Morbid (severe) obesity due to excess calories; E83.51 Hypocalcemia; Z79.4 Long term (current) use of insulin
CPT/HCPCS: 36415; 36600; 70450; 70551; 71045; 71250; 74018; 74176; 76604; 76770; 78580; 80048; 80053; 80076; 81001; 81050; 82575; 82607; 82805; 82948; 83036; 83540; 83605; 83690; 83735; 83970; 84100; 84156; 84443; 84466; 84484; 85014; 85018; 85025; 85610; 85651; 85730; 86850; 86900; 86920; 87040; 87086; 93005; 93970; 94640; 95812; 96361; 96372; 99251; 99284; A9540; J0360; J0456; J0610; J0692; J0696; J1644; J1756; J1817; J1940; J2270; J2405; J2720; J7030; J7040; J7050; J7070; P9016; Q0162; U0002

== ENCOUNTER → 2020-10-07 | Day surgery (SDC) | payer OTHER ==
[2020-10-06 12:17] LABS: BASOPHILS # (AUTO) 0.1 (0.0-0.1); BASOPHILS % 0.9 % (0.0-1.0); EOSINOPHILS # (AUTO) 0.7 (0.0-0.4); EOSINOPHILS % 5.8 % (0.0-6.0); HEMATOCRIT 30.3 % (34.2-44.1); HEMOGLOBIN 9.3 g/dL (12.0-16.0); LYMPHOCYTES # (AUTO) 1.9 (1.0-3.2); LYMPHOCYTES % 16.7 % (18.0-39.1); MEAN CORPUSCULAR HEMOGLOBIN 30.7 pg (28-32); MEAN CORPUSCULAR HGB CONC 30.7 g/dL (31-35); MONOCYTES # (AUTO) 0.7 (0.2-0.8); MONOCYTES % 6.2 % (4.4-11.3); NEUTROPHILS # (AUTO) 7.9 (2.1-6.9); NEUTROPHILS % 69.6 % (38.7-80.0); PLATELET COUNT 473 x10e3/uL (140-360); RED BLOOD COUNT 3.03 x10e6/uL (3.6-5.1); RED CELL DISTRIBUTION WIDTH 13.8 % (11.7-14.4)
[2020-10-06 12:37] LABS: ANION GAP 12.9 mmol/L (8-16); CALCIUM 8.5 mg/dL (8.4-10.2); CREATININE, SERUM 3.05 mg/dL (0.57-1.11); POTASSIUM 4.9 mmol/L (3.5-5.1)
[2020-10-06 12:43] LABS: INR 0.97; PROTHROMBIN TIME 13.5 seconds (11.9-14.5)
[2020-10-06 12:44] LABS: PARTIAL THROMBOPLASTIN TIME 31.1 seconds (23.8-35.5)
[~2020-10-07] MED LIST changes: +ACETAMINOPHEN/CODEINE 300MG - 30MG TAB ONE; +AUGMENTIN 500-1 EACH PO; +BASAGLAR K100 UNIT/1 SQ; +BUPIVACAINE HCL 0.5% INJ 30 ML VIAL INJ ONE; +Calcium Acetate PO; +FENTANYL CITRATE/PF 100MCG/2 ML INJ ONE; +FUROSEMIDE40 MG PO; +HEPARIN SOD (PORCINE) 1000 UNIT/ML 30ML ONE; +LIDOCAINE HCL 2% JELLY 5 ML TUBE ONE; +LIDOCAINE HCL 2% LOCAL INJ 5 ML SDV VIAL INJ ONE; +LOPRESSOR25 MG PO; +MIDAZOLAM HCL 2 MG/2 ML VIAL ONE; +NIFEDIPINE ER30 M1 PO; +OLMESARTAN-HCT1 EAC1 PO; +ONDANSETRON HCL INJ 2MG/ML 2ML 2 MG/ML VIAL ONE; +POVIDONE IODINE 0.05% 0.05 % ML PO ONE; +PROPOFOL IV EMULSION 10 MG/ML 20 ML VIAL ONE; +PROTAMINE SULFATE 10 MG/ML 5 ML VIAL ONE; +ROCALTROL0.25 MCG PO; +SEVOFLURANE INHAL SOLN 250 ML PEN BTL ONE; +SODIUM CHLORIDE 0.9% 250ML 250 ML ONE; +SODIUM CHLORIDE 0.9% 500ML 500 ML ONE; +Vancomycin IV 1 GM VIAL ONE
[2020-10-07 14:45] VITALS: BP 149/68
== END | disposition home or self-care (01) ==
LOC: OR 08:48
PROVIDERS: ATTEND Surgery
DX: E11.22 Type 2 diabetes mellitus with diabetic chronic kidney disease (principal); I12.0 Hypertensive chronic kidney disease with stage 5 chronic kidney disease or end stage renal disease; N18.6 End stage renal disease; I70.208 Unspecified atherosclerosis of native arteries of extremities, other extremity; G62.9 Polyneuropathy, unspecified; E78.5 Hyperlipidemia, unspecified; E66.01 Morbid (severe) obesity due to excess calories; D64.9 Anemia, unspecified; Z88.6 Allergy status to analgesic agent; Z01.812 Encounter for preprocedural laboratory examination; Z79.4 Long term (current) use of insulin; Z99.2 Dependence on renal dialysis; Z87.01 Personal history of pneumonia (recurrent)
CPT/HCPCS: 36415 ×2; 36818; 80048; 82948; 84132; 85025; 85610; 85730; C1713; J1644; J2001 ×2; J2250; J2405; J2704; J2720; J3010; J3370; J7040; J7050